=== PATIENT | female | born 1990 | race Caucasian/White ===

== ENCOUNTER 2018-09-27 20:01 | Emergency (ER) | payer BC ==
--- NOTE | 2018-09-27 20:04 | EDM.PDOC ---
ED HPI GENERAL MEDICAL PROBLEM - General Stated Complaint: PT HAS FEVER AND COUGH Time Seen by Provider: 09/27/18 20:02 Source of Information: Reports: Patient History Limitations: Reports: No Limitations - History of Present Illness INITIAL COMMENTS - FREE TEXT/NARRATIVE: HISTORY AND PHYSICAL: Cough History of present illness: Patient is a 28-year-old female who presents to the emergency room with complaints of cough and subjective fevers 1 week. She states that she has been using ibuprofen routinely for pain and fever management but still has a nonproductive cough. Hasn't not been able to sleep due to the cough disrupting her. She denies any chest pain, shortness of breath, abdominal pain, nausea, vomiting , diarrhea or constipation. She has been able to eat and drink appropriately. Denies any chance of . Patient is a pack per day smoker times one year. Review of systems: As per history of present illness and below otherwise all systems reviewed and negative. Past medical history: As per history of present illness and as reviewed below otherwise noncontributory. Surgical history: As per history of present illness and as reviewed below otherwise noncontributory. Social history: See social history for further information Family history: As per history of present illness and as reviewed below otherwise noncontributory. Physical exam: General: Well-developed and well-nourished 28 she'll female. Alert and oriented. Nontoxic appearing and in no acute distress. HEENT: Atraumatic, normocephalic, pupils equal and reactive bilaterally, negative for conjunctival pallor or scleral icterus, mucous membranes moist, throat clear, neck supple, nontender, trachea midline. No drooling or trismus noted. No meningeal signs Lungs: Clear to auscultation, breath sounds equal bilaterally, chest nontender. Heart: S1S2, regular rate and rhythm without overt murmur Abdomen: Soft, nondistended, nontender. Negative for masses or hepatosplenomegaly. Negative for costovertebral tenderness. Pelvis: Stable nontender. Genitourinary: Deferred. Rectal: Deferred. Skin: Intact, warm, dry. No lesions or rashes noted. Extremities: Atraumatic, negative for cords or calf pain. Neurovascular unremarkable. Neuro: Awake, alert, oriented. Cranial nerves II through XII unremarkable. Cerebellum unremarkable. Motor and sensory unremarkable throughout. Exam nonfocal. Notes: No acute findings on chest x-ray. Due to the longevity of symptoms and patient being a smoker we'll treat with a Z-Kelvin. Supportive care measures were reviewed and discussed. She voices understanding and is agreeable to plan of care. Denies any further questions or concerns at this time. Diagnostics: Chest x-ray Therapeutics: None Prescription: Medrol Dosepak Z-Kelvin Phenergan w/ Codeine ([facility]) Impression: Bronchitis Plan: 1. Please stop smoking 2. Take your medications as directed. Use the Phenergan with Codeine for night time use only; may cause drowsiness. 3. Follow-up with your primary caregiver on Friday. Return to the ED as needed and as discussed. Definitive disposition and diagnosis as appropriate pending reevaluation and review of above. chest Pain Score (Numeric/FACES): 7 - Related Data Allergies Allergy/AdvReac Type Severity Reaction Status Date / Time No Known Allergies Allergy Verified 09/27/18 20:11 Home Meds: Home Meds FLUoxetine [PROzac] 40 mg PO DAILY 09/27/18 [History] ED ROS GENERAL - Review of Systems Review Of Systems: ROS reveals no pertinent complaints other than HPI. ED EXAM, GENERAL - Physical Exam Exam: See Below (See dictation) Course - Vital Signs Last Recorded V/S: Last Vital Signs Temp 96.8 F 09/27/18 20:08 Pulse 73 09/27/18 20:08 Resp 17 09/27/18 20:08 BP 122/86 09/27/18 20:08 Pulse Ox 98 09/27/18 20:08 - Orders/Labs/Meds Orders: Active Orders 24 hr Category Date Time Status Chest 2V [CR] Stat Exams 09/27/18 20:03 Ordered Azithromycin [Zithromax] Med 09/27/18 20:23 Stat 500 mg PO NOW STA Departure - Departure Time of Disposition: 20:24 Disposition: Home, Self-Care 01 Clinical Impression: Bronchitis - Discharge Information Instructions: Acute Bronchitis, Adult, [id number] Additional Instructions: The following information is given to patients seen in the emergency department who are being discharged to home. This information is to outline your options for follow-up care. We provide all patients seen in our emergency department with a follow-up referral. The need for follow-up, as well as the timing and circumstances, are variable depending upon the specifics of your emergency department visit. If you don't have a primary care physician on staff, we will provide you with a referral. We always advise you to contact your personal physician following an emergency department visit to inform them of the circumstance of the visit and for follow-up with them and/or the need for any referrals to a consulting specialist. The emergency department will also refer you to a specialist when appropriate. This referral assures that you have the opportunity for follow-up care with a specialist. All of these measure are taken in an effort to provide you with optimal care, which includes your follow-up. Under all circumstances we always encourage you to contact your private physician who remains a resource for coordinating your care. When calling for follow-up care, please make the office aware that this follow-up is from your recent emergency room visit. If for any reason you are refused follow-up, please contact the [facility] Emergency Department at and asked to speak to the emergency department charge nurse. [facility] [address] [place] [id number] [place] [address] 1. Please stop smoking 2. Take your medications as directed. Use the Phenergan with Codeine for night time use only; may cause drowsiness. 3. Follow-up with your primary caregiver on Friday. Return to the ED as needed and as discussed. - My Orders Last 24 Hours: My Active Orders 09/27/18 20:03 Chest 2V [CR] Stat 09/27/18 20:23 Azithromycin [Zithromax] 500 mg PO NOW STA - Assessment/Plan Last 24 Hours: My Active Orders 09/27/18 20:03 Chest 2V [CR] Stat 09/27/18 20:23 Azithromycin [Zithromax] 500 mg PO NOW STA
[2018-09-27] MEDS ORDERED: Azithromycin 250 MG Tab PO STA (20:23)
--- NOTE | 2018-09-28 20:34 | CR ---
EXAM DATE: 09/27/18 PATIENT'S AGE: 28 Patient: PIA CARCAMO Facility: [place], [place] Site . Site : 1990 Study: XRay Chest [id number] 8:23:15 PM Ordering Physician: Doctor Munoz Final Report: HISTORY: Chest pain and shortness of breath. TECHNIQUE: Two views of the chest. COMPARISON: No prior. FINDINGS: Cardiac size and pulmonary vasculature are within normal limits. There is no acute lung infiltrate or pulmonary edema. No pneumothorax or pleural effusion. No acute bony abnormality. IMPRESSION: No acute disease. Dictated by Marcelo Mccoy MD @ 09/27/2018 8:48:08 PM Dictated by: Marcelo Mccoy MD @ 09/27/2018 20:48:12 (Electronic Signature) Report Signed by Proxy. [facility]
== END 2018-09-27 20:45 | disposition home or self-care (01) ==
LOC: MW.ED 20:01
DX: J40 Bronchitis, not specified as acute or chronic (principal); F17.210 Nicotine dependence, cigarettes, uncomplicated; Z79.899 Other long term (current) drug therapy
CPT/HCPCS: 71046; 99283; A9270

== ENCOUNTER 2018-10-21 20:00 | Emergency (ER) | payer BC ==
[2018-10-21] MEDS ORDERED: Lidocaine 1% with EPINEPHrine 1:100,000 20 ML MDV INJECT ONE (20:24)
[2018-10-21] MEDS ORDERED: Sulfamethoxazole/Trimethoprim 800-160 MG Tab PO ONE (20:24)
[2018-10-21] MEDS ORDERED: Lidocaine 1% with EPINEPHrine 1:100,000 20 ML MDV ONE (20:27)
--- NOTE | 2018-10-21 20:27 | EDM.PDOC ---
ED HPI GENERAL MEDICAL PROBLEM - General Chief Complaint: Skin Complaint Stated Complaint: SORE ON RIGH LEG Time Seen by Provider: 10/21/18 20:17 - History of Present Illness INITIAL COMMENTS - FREE TEXT/NARRATIVE: HISTORY AND PHYSICAL: History of present illness: The patient is a healthy 28-year-old female who has no history of diabetes or other pre-existing medical problems and presents with a bump/reddened area at her right inner thigh. She says she noticed about 2 months ago and spoke with her provider at [facility] without it might be an ingrown hair but it was not red or swollen. Over the last 2 months due to rubbing of her inner thighs she says it has gotten more prominent and she is concerned that it is an abscess. She has pain to the area. She has no redness streaking up her leg and she has no pain in the thigh except at the localized site. She has no systemic complaints has an IUD in place and is not . Review of systems: As per history of present illness and below otherwise all systems reviewed and negative. Past medical history: As per history of present illness and as reviewed below otherwise noncontributory. Surgical history: As per history of present illness and as reviewed below otherwise noncontributory. Social history: No reported history of drug or alcohol abuse. Family history: As per history of present illness and as reviewed below otherwise noncontributory. Physical exam: General: Well-developed well-nourished overweight female who is nontoxic and vital signs noted by me HEENT: Atraumatic, normocephalic, negative for conjunctival pallor or scleral icterus, mucous membranes moist, throat clear, neck supple, nontender, trachea midline. Lungs: Clear to auscultation, breath sounds equal bilaterally, chest nontender. Heart: S1S2, regular rate and rhythm no overt murmurs Abdomen: Soft, nondistended, nontender. NABS Pelvis: Stable nontender. Genitourinary: Deferred. Rectal: Deferred. Extremities: Atraumatic, negative for cords or calf pain. Neurovascular unremarkable. Neuro: Awake, alert, oriented. Cranial nerves II through XII unremarkable. Cerebellum unremarkable. Motor and sensory unremarkable throughout. Exam nonfocal. Skin: At the right inner thigh there is a raised fluctuant area that is 1.5 I 2 cm with only minimal surrounding erythema and no streaking. There is tenderness at the site and it is ballotable but it is not tense. There is no inguinal adenopathy and the thigh itself is nontender and nonswollen. Diagnostics: [] Therapeutics: Bactrim DS, lidocaine with epinephrine for I&D Procedure note: After the procedure was explained to the patient the skin was cleansed and lidocaine with epinephrine was infused in a local fashion. An #11 blade was utilized to make an incision and a small amount of fluid was expressed. The cavity was explored and an iodoform pack was placed. The patient tolerated the procedure well and there were no complications. A dressing was placed. The procedure was performed by Jose Alvarado [employer] Impression: Right inner thigh abscess Definitive disposition and diagnosis as appropriate pending reevaluation and review of above. Right Upper Leg Pain Score (Numeric/FACES): 3 - Related Data Allergies Allergy/AdvReac Type Severity Reaction Status Date / Time No Known Allergies Allergy Verified 09/27/18 20:11 Home Meds: Home Meds FLUoxetine [PROzac] 40 mg PO DAILY 09/27/18 [History] LORazepam 1 mg PO ASDIRECTED 10/21/18 [History] Past Medical History Respiratory History: Reports: Other (See Below) Other Respiratory History: pneumonia nov 2017 Musculoskeletal History: Reports: Fracture, Other (See Below) Other Musculoskeletal History: C2 fx Neurological History: Reports: Other (See Below) Other Neuro History: broken C2 due to falling off horse Psychiatric History: Reports: Anxiety, Depression - Infectious Disease History Infectious Disease History: Reports: Chicken Pox - Past Surgical History Respiratory Surgical History: Reports: None Social & Family History - Family History Family Medical History: Noncontributory - Tobacco Use Smoking Status *Q: Current Every Day Smoker Years of Tobacco use: 8 Packs/Tins Daily: 0.3 - Caffeine Use Caffeine Use: Reports: None - Recreational Drug Use Recreational Drug Use: No ED ROS GENERAL - Review of Systems Review Of Systems: ROS reveals no pertinent complaints other than HPI. ED EXAM, SKIN/RASH Exam: See Below (see Dictation) Course - Vital Signs Last Recorded V/S: Last Vital Signs Temp 36.4 C 10/21/18 20:13 Pulse 64 10/21/18 20:13 Resp 18 10/21/18 20:13 BP 125/91 H 02/06/19 20:13 Pulse Ox 97 10/21/18 20:13 - Orders/Labs/Meds Meds: Medications Discontinued Medications Generic Name Dose Route Start Last Admin Trade Name Clary PRN Reason Stop Dose Admin Lidocaine/Epinephrine 20 ml 10/21/18 20:24 10/21/18 20:31 Xylocaine 1% With Epinephrine 1:100,000 INJECT 10/21/18 20:25 20 ml ONETIME ONE Administration Lidocaine/Epinephrine Confirm 10/21/18 20:27 10/21/18 20:31 Xylocaine 1% With Epinephrine 1:100,000 Administered 10/21/18 20:28 Not Given Dose 20 ml .ROUTE .STK-MED ONE Trimethoprim/Sulfamethoxazole 1 tab 10/21/18 20:24 10/21/18 20:31 Septra Ds PO 10/21/18 20:25 1 tab ONETIME ONE Administration Departure - Departure Time of Disposition: 20:38 Disposition: Home, Self-Care 01 Condition: Good Clinical Impression: Abscess - Discharge Information Referrals: Rosio Garcia NP [Primary Care Provider] - Forms: ED Department Discharge Additional Instructions: The following information is given to patients seen in the emergency department who are being discharged to home. This information is to outline your options for follow-up care. We provide all patients seen in our emergency department with a follow-up referral. The need for follow-up, as well as the timing and circumstances, are variable depending upon the specifics of your emergency department visit. If you don't have a primary care physician on staff, we will provide you with a referral. We always advise you to contact your personal physician following an emergency department visit to inform them of the circumstance of the visit and for follow-up with them and/or the need for any referrals to a consulting specialist. The emergency department will also refer you to a specialist when appropriate. This referral assures that you have the opportunity for followup care with a specialist. All of these measure are taken in an effort to provide you with optimal care, which includes your followup. Under all circumstances we always encourage you to contact your private physician who remains a resource for coordinating your care. When calling for followup care, please make the office aware that this follow-up is from your recent emergency room visit. If for any reason you are refused follow-up, please contact the [facility] emergency department at and ask to speak to the emergency department charge nurse. [address] [place] [address] Please have pack removed here in the ED and 24-36 hours or with your provider at [facility]. Take medications as prescribed. Expect drainage from the area. Return to ER sooner as needed and as discussed. Use [id number] medications for pain or the tramadol you have been prescribed for stronger pain and sleep time.
== END 2018-10-21 21:00 | disposition home or self-care (01) ==
LOC: MW.ED 20:00
DX: L02.415 Cutaneous abscess of right lower limb (principal); F17.210 Nicotine dependence, cigarettes, uncomplicated
CPT/HCPCS: 10060; 99282; A9270

== ENCOUNTER 2020-08-14 10:31 | Emergency (ER) | payer BC ==
[2020-08-14] MEDS ORDERED: Sodium Chloride 0.9% 1,000 ML IV ONE (10:47)
--- NOTE | 2020-08-14 11:02 | PCM.SN.2 ---
- Free Text/Narrative Note: 12-Lead ECG Interpretation Acquired: 10:57 AM Rhythm: Sinus tachycardia Rate: 111 bpm [place]: Normal Intervals: Normal Ectopy: None RV Strain: No obvious RV strain pattern. ST Segments/T-Waves: No notable changes Acute Ischemic Changes: None apparent Interpretation: No STEMI
--- NOTE | 2020-08-14 11:32 | EDM.PDOC ---
ED HPI GENERAL MEDICAL PROBLEM - General Chief Complaint: Cardiovascular Problem Stated Complaint: SHORTNESS OF BREATH Time Seen by Provider: 08/14/20 10:35 Source of Information: Reports: Patient History Limitations: Reports: No Limitations - History of Present Illness INITIAL COMMENTS - FREE TEXT/NARRATIVE: HISTORY AND PHYSICAL: History of present illness: Patient is a 29-year-old female who presents to the emergency room today with concern of a fast heart rate that started this morning. Patient states she called her [employer] provider, Nini Carney, and was instructed to come to the emergency room for further evaluation. Patient states she is approximately 24 weeks in gestation with her first . Patient states she has not had any complications and thus far has had a routine . Patient denies any vaginal bleeding, or abdominal cramping. Patient states that when she is laying down, she feels better but feels worse when she sits up and walks around and feels her heart beating faster. Patient states she has a pulse oximeter at home that was telling her her heart rate was 150s and oxygen 80s at home so called Nini and instructed to come to the ED. Patient states she was diagnosed with COVID-19 over 1 month ago and has been symptom free for a few weeks/cleared from quarantine. Patient denies fever, chills, chest pain, shortness of breath, or cough. Denies headache, neck stiff ness, change in vision, syncope, or near syncope. Denies nausea, vomiting, abdominal pain, diarrhea, constipation, or dysuria. Has not noted any blood in urine or stool. Patient has been eating and drinking appropriately. Review of systems: As per history of present illness and below otherwise all systems reviewed and negative. Past medical history: As per history of present illness and as reviewed below otherwise noncontributory. Surgical history: As per history of present illness and as reviewed below otherwise noncontributory. Social history: See social history for further information Family history: As per history of present illness and as reviewed below otherwise noncontributory. Physical exam: General: Patient is alert, oriented, and in no acute distress. Patient laying comfortably on exam table. HR 100s-110 on my exam. Vitals stable and reviewed by me. HEENT: Atraumatic, normocephalic, pupils equal and reactive bilaterally, negative for conjunctival pallor or scleral icterus, mucous membranes moist, TMs normal bilaterally, throat clear, neck supple, nontender, trachea midline. No drooling or trismus noted. No meningeal signs. No hot potato voice noted. Lungs: Clear to auscultation, breath sounds equal bilaterally, chest nontender. Heart: S1S2, regular rate and rhythm without overt murmur Abdomen: Soft, nondistended, nontender. Negative for masses or hepatosplenomegaly. Negative for costovertebral tenderness. Pelvis: Stable nontender. Genitourinary: Deferred. Rectal: Deferred. Skin: Intact, warm, dry. No lesions or rashes noted. Extremities: Atraumatic, negative for cords or calf pain. Neurovascular unremarkable. Neuro: Awake, alert, oriented. Cranial nerves II through XII unremarkable. Cerebellum unremarkable. Motor and sensory unremarkable throughout. Exam nonfocal. Notes: heart tones at bedside 145. All risks vs benefits of Ang CT scan discussed with patient and accepting/agreeable to Ang CT scan. Evaluation, patient's heart rate is consistently 80s to 90s after 1 L of normal saline was given. Patient states she does have improvement of symptoms after liter of normal saline. Ambulatory saturation was obtained, and patient's lowest oxygenation saturation with ambulation was 95% and patient breathing comfortably. Incidental findings of Ang CT scan discussed with patient and the importance to have this followed up with PCP. Also discussed following up with her primary care provider and her women's health provider. Signs and symptoms that would prompt return to the ED thoroughly discussed with patient. Strict return precautions thoroughly discussed. Repeat EKG shows no acute changes. See Dr. Foote documentation for further EKG interpretation. Voices understanding and is agreeable to plan of care. Denies any further questions or concerns at this time. Diagnostics: EKG, CBC, CMP, UA, Trop, Ddimer, Ang CT Therapeutics: NS Prescription: None Impression: Sinus tachycardia, resolved Palpitations Plan: 1. Encourage small frequent sips of fluid to prevent dehydration. 2. Follow up with a primary care provider and women health provider as discussed. Return to the ED as needed and as discussed. Definitive disposition and diagnosis as appropriate pending reevaluation and review of above. - Related Data Allergies Allergy/AdvReac Type Severity Reaction Status Date / Time No Known Allergies Allergy Verified 08/14/20 10:42 Home Meds: Home Meds FLUoxetine [PROzac] 40 mg PO DAILY 09/27/18 [History] Past Medical History HEENT History: Reports: None Cardiovascular History: Reports: None Respiratory History: Reports: Other (See Below) Other Respiratory History: pneumonia nov 2017 Gastrointestinal History: Reports: None Genitourinary History: Reports: None RESCUE INSTRUCTOR History: Reports: None Musculoskeletal History: Reports: Fracture, Other (See Below) Other Musculoskeletal History: C2 fx Neurological History: Reports: Other (See Below) Other Neuro History: broken C2 due to falling off horse Psychiatric History: Reports: Anxiety, Depression Endocrine/Metabolic History: Reports: None Dermatologic History: Reports: None - Infectious Disease History Infectious Disease History: Reports: Chicken Pox - Past Surgical History Respiratory Surgical History: Reports: None Female Surgical History: Reports: None Neurological Surgical History: Reports: Other (See Below) Other Neurological Surgeries/Procedures: using hallo Social & Family History - Family History Family Medical History: No Pertinent Family History - Tobacco Use Tobacco Use Status *Q: Never Tobacco User - Caffeine Use Caffeine Use: Reports: Coffee - Recreational Drug Use Recreational Drug Use: No ED ROS GENERAL - Review of Systems Review Of Systems: Comprehensive ROS is negative, except as noted in HPI. ED EXAM, GENERAL - Physical Exam Exam: See Below (see dictation) Course - Vital Signs Last Recorded V/S: Last Vital Signs Temp 98.1 F 08/14/20 15:24 Pulse 92 08/14/20 15:24 Resp 18 08/14/20 15:24 BP 116/71 08/14/20 15:24 Pulse Ox 95 08/14/20 15:24 - Orders/Labs/Meds Labs: Laboratory Tests 08/14/20 08/14/20 08/14/20 Range/Units 10:57 10:57 10:57 WBC 15.36 H (4.0-11.0) K/uL RBC 3.91 L (4.30-5.90) M/uL Hgb 11.3 L (12.0-16.0) g/dL Hct 34.3 L (36.0-46.0) % MCV 87.7 (80.0-98.0) fL MCH 28.9 (27.0-32.0) pg MCHC 32.9 (31.0-37.0) g/dL RDW Std Deviation 44.0 (28.0-62.0) fl RDW Coeff of Rick 14 (11.0-15.0) % Plt Count 322 (150-400) K/uL MPV 10.80 (7.40-12.00) fL Add Manual Diff YES Neutrophils % (Manual) 67 (48.0-80.0) % Band Neutrophils % 10 % Lymphocytes % (Manual) 17 (16.0-40.0) % Monocytes % (Manual) 4 (0.0-15.0) % Metamyelocytes % 2 % Nucleated RBC % 0.0 /100WBC Absolute Seg Neuts 10.3 H (1.4-5.7) Band Neutrophils # 1.5 Lymphocytes # (Manual) 2.6 H (0.6-2.4) Monocytes # (Manual) 0.6 (0.0-0.8) Absolute Metamyelocyte 0.3 Nucleated RBCs # 0 K/uL Plt Morphology Comment D-Dimer, Quantitative 0.87 H (0.0-0.50) mg/L FEU Lactate (0.20-2.00) mmol/L Sodium 136 (136-145) mmol/L Potassium 3.7 (3.5-5.1) mmol/L Chloride 104 (98-107) mmol/L Carbon Dioxide 22.5 (21.0-32.0) mmol/L BUN 8 (7.0-18.0) mg/dL Creatinine 0.6 (0.6-1.0) mg/dL Est Cr Clr Drug Dosing 121.62 mL/min Estimated GFR (MDRD) > 60.0 ml/min Glucose 144 H (74-106) mg/dL Calcium 8.8 (8.5-10.1) mg/dL Total Bilirubin 0.2 (0.2-1.0) mg/dL AST 13 L (15-37) IU/L ALT 17 (14-63) IU/L Alkaline Phosphatase 93 (46-116) U/L Troponin I < 0.050 (0.000-0.056) ng/mL Total Protein 6.4 (6.4-8.2) g/dL Albumin 2.5 L (3.4-5.0) g/dL Globulin 3.9 (2.6-4.0) g/dL Albumin/Globulin Ratio 0.6 L (0.9-1.6) TSH 3rd Generation (0.36-3.74) uIU/mL Urine Color Urine Appearance Urine pH (5.0-8.0) Ur Specific [place] (1.001-1.035) Urine Protein (NEGATIVE) mg/dL Urine Glucose (UA) (NEGATIVE) mg/dL Urine Ketones (NEGATIVE) mg/dL Urine Occult Blood (NEGATIVE) Urine Nitrite (NEGATIVE) Urine Bilirubin (NEGATIVE) Urine Urobilinogen (<2.0) EU/dL Ur Leukocyte Esterase (NEGATIVE) 08/14/20 08/14/20 08/14/20 Range/Units 10:57 11:56 12:15 WBC (4.0-11.0) K/uL RBC (4.30-5.90) M/uL Hgb (12.0-16.0) g/dL Hct (36.0-46.0) % MCV (80.0-98.0) fL MCH (27.0-32.0) pg MCHC (31.0-37.0) g/dL RDW Std Deviation (28.0-62.0) fl RDW Coeff of Rick (11.0-15.0) % Plt Count (150-400) K/uL MPV (7.40-12.00) fL Add Manual Diff Neutrophils % (Manual) (48.0-80.0) % Band Neutrophils % % Lymphocytes % (Manual) (16.0-40.0) % Monocytes % (Manual) (0.0-15.0) % Metamyelocytes % % Nucleated RBC % /100WBC Absolute Seg Neuts (1.4-5.7) Band Neutrophils # Lymphocytes # (Manual) (0.6-2.4) Monocytes # (Manual) (0.0-0.8) Absolute Metamyelocyte Nucleated RBCs # K/uL Plt Morphology Comment D-Dimer, Quantitative (0.0-0.50) mg/L FEU Lactate 1.5 (0.20-2.00) mmol/L Sodium (136-145) mmol/L Potassium (3.5-5.1) mmol/L Chloride (98-107) mmol/L Carbon Dioxide (21.0-32.0) mmol/L BUN (7.0-18.0) mg/dL Creatinine (0.6-1.0) mg/dL Est Cr Clr Drug Dosing mL/min Estimated GFR (MDRD) ml/min Glucose (74-106) mg/dL Calcium (8.5-10.1) mg/dL Total Bilirubin (0.2-1.0) mg/dL AST (15-37) IU/L ALT (14-63) IU/L Alkaline Phosphatase (46-116) U/L Troponin I (0.000-0.056) ng/mL Total Protein (6.4-8.2) g/dL Albumin (3.4-5.0) g/dL Globulin (2.6-4.0) g/dL Albumin/Globulin Ratio (0.9-1.6) TSH 3rd Generation 1.25 (0.36-3.74) uIU/mL Urine Color YELLOW Urine Appearance CLEAR Urine pH 7.0 (5.0-8.0) Ur Specific [place] 1.020 (1.001-1.035) Urine Protein NEGATIVE (NEGATIVE) mg/dL Urine Glucose (UA) NEGATIVE (NEGATIVE) mg/dL Urine Ketones NEGATIVE (NEGATIVE) mg/dL Urine Occult Blood NEGATIVE (NEGATIVE) Urine Nitrite NEGATIVE (NEGATIVE) Urine Bilirubin NEGATIVE (NEGATIVE) Urine Urobilinogen 0.2 (<2.0) EU/dL Ur Leukocyte Esterase NEGATIVE (NEGATIVE) Meds: Medications Discontinued Medications Generic Name Dose Route Start Last Admin Trade Name Freq PRN Reason Stop Dose Admin Sodium Chloride 1,000 mls @ 999 mls/hr 08/14/20 10:47 08/14/20 10:53 Normal Saline IV 08/14/20 11:47 999 mls/hr BOLUS ONE Administration Iopamidol 75 ml 08/14/20 13:40 08/14/20 13:41 Isovue Multipack-370 (76%) IVPUSH 08/14/20 13:41 75 ml ONETIME STA Administration Departure - Departure Time of Disposition: 15:01 Disposition: Home, Self-Care 01 Clinical Impression: Palpitations, Sinus tachycardia - Discharge Information Instructions: Palpitations, [id number] Referrals: Nini Aden CNM, [employer]ANNER [Primary Care Provider] - Forms: ED Department Discharge Additional Instructions: The following information is given to patients seen in the emergency department who are being discharged to home. This information is to outline your options for follow-up care. We provide all patients seen in our emergency department with a follow-up referral. The need for follow-up, as well as the timing and circumstances, are variable depending upon the specifics of your emergency department visit. If you don't have a primary care physician on staff, we will provide you with a referral. We always advise you to contact your personal physician following an emergency department visit to inform them of the circumstance of the visit and for follow-up with them and/or the need for any referrals to a consulting specialist. The emergency department will also refer you to a specialist when appropriate. This referral assures that you have the opportunity for follow-up care with a specialist. All of these measure are taken in an effort to provide you with optimal care, which includes your follow-up. Under all circumstances we always encourage you to contact your private physician who remains a resource for coordinating your care. When calling for follow-up care, please make the office aware that this follow-up is from your recent emergency room visit. If for any reason you are refused follow-up, please contact the [facility] at and asked to speak to the emergency department charge nurse. [facility] [address] [place] [address] [id number] 1. Encourage small frequent sips of fluid to prevent dehydration. 2. Follow up with a primary care provider and women health provider as discussed. Return to the ED as needed and as discussed. Sepsis Event Note (ED) - Evaluation Sepsis Screening Result: No Definite Risk - Focused Exam Vital Signs: Vital Signs Temp Pulse Resp BP Pulse Ox 08/14/20 15:24 98.1 F 92 18 116/71 95 08/14/20 14:08 83 18 128/76 96 08/14/20 13:08 85 14 115/77 96 08/14/20 12:19 82 18 131/78 96 08/14/20 11:08 99 16 123/83 95 08/14/20 10:42 97.8 F 150 H 16 138/88 96
[2020-08-14 11:46] LABS: BLOOD UREA NITROGEN,BUN 8 mg/dL (7.0-18.0); CARBON DIOXIDE,CO2 22.5 mmol/L (21.0-32.0); CHLORIDE,CL 104 mmol/L (98-107); GLUCOSE RANDOM 144 mg/dL (74-106); POTASSIUM,K 3.7 mmol/L (3.5-5.1); SODIUM,NA 136 mmol/L (136-145)
[2020-08-14] MEDS ORDERED: Iopamidol 755 MG/ML 500 ML Multipack Bottle IVPUSH STA (13:40)
--- NOTE | 2020-08-14 14:17 | CT ---
INDICATION: Dyspnea. Tachycardia. Elevated D-dimer. . COMPARISON: None TECHNIQUE: : CT examination of the chest was performed with the uneventful intravenous administration of 75 cc of Isovue 370 while thin axial sections were obtained from above the apices of the lungs to the lung bases. Please note that all CT scans at this facility use dose modulation, iterative reconstruction, and/or weight-based dosing when appropriate to reduce radiation dose to as low as reasonably achievable. FINDINGS: : HEART and MEDIASTINUM: Heart size normal. Prominent superior mediastinal soft tissue. 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 A repeat CT should be considered in 3 months. There are other possibilities for this appearance including mass or adenopathy. PULMONARY ARTERIAL CIRCULATION: There is no visible intraluminal filling defect to suggest pulmonary embolus. LUNGS: The lungs show no focal consolidation or mass. The airways appear normal. PLEURAL SPACES: There is no pleural effusion, pneumothorax or pleural based mass. VISUALIZED UPPER ABDOMEN: The limited visualized upper abdominal structures appear normal. OSSEOUS STRUCTURES: Age-appropriate appearance. No acute fracture or destructive process. TUBES and LINES: None. IMPRESSION: 1. There is no evidence of pulmonary embolus. 2. The lungs and pleural space appear normal. 3. 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 I recommend that this be followed up. A follow-up CT should be considered in 3 months. Please review the comment. Please note that all CT scans at this facility use dose modulation, iterative reconstruction, and/or weight-based dosing when appropriate to reduce radiation dose to as low as reasonably achievable. Dictated by Jack Quintana MD @ Aug 14 2020 2:05PM Signed by Dr. Jack Quintana @ Aug 14 2020 2:15PM
--- NOTE | 2020-08-14 16:06 | PCM.SN.2 ---
- Free Text/Narrative Note: 12-Lead ECG Interpretation Acquired: 2:45 PM Rhythm: Sinus rhythm Rate: 78 bpm [place]: Normal Intervals: Normal Ectopy: None RV Strain: No obvious RV strain pattern. ST Segments/T-Waves: No notable changes Acute Ischemic Changes: None apparent Interpretation: No STEMI
== END 2020-08-14 15:27 | disposition home or self-care (01) ==
LOC: MW.ED 10:31
DX: R00.2 Palpitations (principal); R00.0 Tachycardia, unspecified; O99.342 Other mental disorders complicating pregnancy, second trimester; F41.9 Anxiety disorder, unspecified; F32.9 Major depressive disorder, single episode, unspecified; Z79.899 Other long term (current) drug therapy; O99.891 Other specified diseases and conditions complicating pregnancy; Z3A.24 24 weeks gestation of pregnancy
CPT/HCPCS: 36415; 71275; 80053; 81003; 83605; 84443; 84484; 85025; 85379; 93005; 99285; J7030; Q9967; 93010; 99284

== ENCOUNTER 2020-08-31 21:52 | Emergency (ER) | payer BC ==
[2020-08-31 22:54] LABS: BLOOD UREA NITROGEN,BUN 8 mg/dL (7.0-18.0); CARBON DIOXIDE,CO2 24.9 mmol/L (21.0-32.0); CHLORIDE,CL 104 mmol/L (98-107); GLUCOSE RANDOM 120 mg/dL (74-106); POTASSIUM,K 3.8 mmol/L (3.5-5.1); SODIUM,NA 139 mmol/L (136-145)
--- NOTE | 2020-08-31 23:05 | US ---
INDICATION: Left ankle and leg swelling COMPARISON: None TECHNIQUE: A compression venous ultrasound exam was performed of the left lower extremity using gibbs-scale imaging, color Doppler and spectral Doppler analysis. FINDINGS: The common femoral vein and proximal greater saphenous vein are compressible and demonstrate normal phasic flow with augmentation. The superficial femoral vein, popliteal vein, posterior tibial vein, and peroneal vein are also compressible and demonstrate normal phasic flow with augmentation. IMPRESSION: No evidence of left lower extremity deep venous thrombosis. Dictated by Heaven Burgess MD @ Aug 31 2020 11:02PM Signed by Dr. Heaven Burgess @ Aug 31 2020 11:04PM
--- NOTE | 2020-08-31 23:33 | EDM.PDOC ---
ED [facility] GENERAL MEDICAL PROBLEM - General Chief Complaint: Lower Extremity Injury/Pain Stated Complaint: LEFT LEG SWOLLEN Time Seen by Provider: 08/31/20 21:53 Source of Information: Reports: Patient, Old Records History Limitations: Reports: No Limitations - History of Present Illness INITIAL COMMENTS - FREE TEXT/NARRATIVE: This is a very pleasant 29-year-old female, 27 weeks , G1 presenting with left lower extremity swelling. 1 day history of swelling to left ankle and the lower half of the left leg. No history of any preceding trauma. Denies any fever, chills, redness, or tenderness. No recent surgery, immobilization, long travel, no history of venous thromboembolism, no personal history of malignancy, denies any chest pain or shortness of breath, no history of liver or renal disease. No abdominal or back pain or any vaginal bleeding. ROS: A 10-point review of systems was negative, except as noted in the HPI (or in the ROS section of this note). Past medical history: Reviewed, no additional pertinent history. Surgical history: Reviewed in system, no additional pertinent history. Social history: Reviewed in system, no additional pertinent history. Family history: Reviewed in system, no additional pertinent history. PHYSICAL EXAM Vital signs reviewed. Nursing notes reviewed. Constitutional: Awake, alert, non-distressed. Head: Normocephalic, atraumatic. Eyes: EOMI, conjunctiva normal, no discharge, no scleral icterus. Ears, Nose, Throat: External ears and nose normal, moist oral mucosa. Cardiovascular: 2+ left DP pulse, capillary refill less than 2 seconds. 2+ edema of the left ankle and the lower half of the left leg. Pulmonary: normal work of breathing, no accessory muscle use. Abdomen/GI: Soft, nontender, nondistended, no guarding or rigidity, no masses. Musculoskeletal: No deformities. Integumentary: Appropriate color for ethnicity, warm, dry, no pallor or jaundice, no rash. The left leg exhibits no erythema, induration, or tenderness to suggest cellulitis. Neurologic: Alert, answering questions appropriately, normal speech, no facial droop, moving all extremities well. Psychiatric: Appropriate mood and affect, normal thought process. This patient was seen and evaluated during the 2019 SARS-CoV-2 novel coronavirus pandemic period. Community viral transmission is ongoing at time of this encounter and the emergency department is operating under pandemic response procedures. - Related Data Allergies Allergy/AdvReac Type Severity Reaction Status Date / Time No Known Allergies Allergy Verified 08/31/20 22:02 Home Meds: Home Meds DULoxetine [Cymbalta] 30 mg PO DAILY 08/31/20 [History] Past Medical History HEENT History: Reports: None Cardiovascular History: Reports: None Respiratory History: Reports: Other (See Below) Other Respiratory History: pneumonia nov 2017 Gastrointestinal History: Reports: None Genitourinary History: Reports: None [employer] History: Reports: None Musculoskeletal History: Reports: Fracture, Other (See Below) Other Musculoskeletal History: C2 fx Neurological History: Reports: Other (See Below) Other Neuro History: broken C2 due to falling off horse Psychiatric History: Reports: Anxiety, Depression Endocrine/Metabolic History: Reports: None Dermatologic History: Reports: None - Infectious Disease History Infectious Disease History: Reports: Chicken Pox - Past Surgical History Respiratory Surgical History: Reports: None Female Surgical History: Reports: None Neurological Surgical History: Reports: Other (See Below) Other Neurological Surgeries/Procedures: using hallo Social & Family History - Family History Family Medical History: No Pertinent Family History - Tobacco Use Tobacco Use Status *Q: Never Tobacco User - Caffeine Use Caffeine Use: Reports: Coffee - Recreational Drug Use Recreational Drug Use: No Review of Systems - Review of Systems Review Of Systems: See Below ED EXAM, GENERAL - Physical Exam Exam: See Below Course - Vital Signs Text/Narrative:: 29-year-old female presenting with asymmetric left leg swelling. Patient hemodynamically stable, afebrile, well-appearing, looks nontoxic. Differential diagnosis includes but is not limited to: DVT, cellulitis, renal disease, liver disease, occult trauma, and many others. Exam is not consistent with cellulitis. Swelling is asymmetric, which argues against liver or renal disease. No history of any trauma. We did obtain labs and a DVT ultrasound, which was negative. CBC shows mild normocytic anemia, leukocytosis, normal platelet count. Metabolic panel is reassuring. No chest pain or shortness of breath to suggest a pulmonary embolism that mobilized from the leg. Given negative work-up and well appearance, stable to discharge home with outpatient [employer] or primary care follow-up. I counseled the patient that she will need a repeat DVT ultrasound in about 7 days. She voiced understanding. We discussed elevating the leg and compression stockings to help reduce the asymmetric edema. Plan: Patient is stable to discharge home with outpatient primary care or [facility] clinic follow-up. Strict emergency department return precautions were provided, patient indicated understanding. All questions were answered prior to departure. Discharged in good condition. Last Recorded V/S: Last Vital Signs Temp 36.2 C 08/31/20 22:03 Pulse 109 H 08/31/20 22:03 Resp 16 08/31/20 22:03 BP 132/94 H 08/31/20 22:03 Pulse Ox 96 08/31/20 22:03 - Orders/Labs/Meds Labs: Laboratory Tests 08/31/20 08/31/20 Range/Units 22:33 22:33 WBC 15.06 H (4.0-11.0) K/uL RBC 3.76 L (4.30-5.90) M/uL Hgb 10.6 L (12.0-16.0) g/dL Hct 32.5 L (36.0-46.0) % MCV 86.4 (80.0-98.0) fL MCH 28.2 (27.0-32.0) pg MCHC 32.6 (31.0-37.0) g/dL RDW Std Deviation 43.2 (28.0-62.0) fl RDW Coeff of Rikc 14 (11.0-15.0) % Plt Count 308 (150-400) K/uL MPV 10.60 (7.40-12.00) fL Neut % (Auto) 75.7 (48.0-80.0) % Lymph % (Auto) 14.1 L (16.0-40.0) % Bandera % (Auto) 7.4 (0.0-15.0) % Eos % (Auto) 2.5 (0.0-7.0) % Baso % (Auto) 0.3 (0.0-1.5) % Neut # (Auto) 11.4 H (1.4-5.7) K/uL Lymph # (Auto) 2.1 (0.6-2.4) K/uL Bandera # (Auto) 1.1 H (0.0-0.8) K/uL Eos # (Auto) 0.4 (0.0-0.7) K/uL Baso # (Auto) 0.0 (0.0-0.1) K/uL Nucleated RBC % 0.0 /100WBC Nucleated RBCs # 0 K/uL Sodium 139 (136-145) mmol/L Potassium 3.8 (3.5-5.1) mmol/L Chloride 104 (98-107) mmol/L Carbon Dioxide 24.9 (21.0-32.0) mmol/L BUN 8 (7.0-18.0) mg/dL Creatinine 0.6 (0.6-1.0) mg/dL Est Cr Clr Drug Dosing 121.62 mL/min Estimated GFR (MDRD) > 60.0 ml/min Glucose 120 H (74-106) mg/dL Calcium 8.9 (8.5-10.1) mg/dL Departure - Departure Time of Disposition: 23:31 Disposition: Home, Self-Care 01 Condition: Good Clinical Impression: Leg edema, left, Second trimester - Discharge Information *PRESCRIPTION DRUG MONITORING PROGRAM REVIEWED*: Not Applicable *COPY OF PRESCRIPTION DRUG MONITORING REPORT IN PATIENT KATHARINA: Not Applicable Referrals: Lai Niño MD [Primary Care Provider] - 1 Week (For repeat ultrasound of the left leg to evaluate for blood clot/DVT.) Additional Instructions: You were seen in the emergency department for left leg swelling. Your ultrasound study did not show blood clot and your labs look reassuring. Typical recommendations are to have the DVT/blood clot ultrasound study repeated in 7 days to ensure that today's ultrasound was not falsely negative. Your family doctor or your [employer] clinic can order this. In the meantime you can elevate your leg while you are resting at home and you can also try compression stockings. Warning signs to come back to the ER include: Worsening swelling, fever, redness or streaking, chest pain, shortness of breath, or any other new or concerning symptoms. Please return the emergency department immediately if your symptoms worsen or if you feel worse. Thank you for choosing the [facility] emergency department in [place] for your medical needs today. It was a pleasure caring for you. The following information is given to patients seen in the emergency department who are being discharged. This information is to outline your options for follow-up care. We provide all patients seen in our emergency department with a follow-up referral. The need for follow-up, as well as the timing and circumstances, are variable depending upon the specifics of your emergency department visit. If you don't have a primary care physician on staff, we will provide you with a referral. We always advise you to contact your personal physician following an emergency department visit to inform them of the circumstance of the visit and for follow-up with them and/or the need for any referrals to a consulting specialist. The emergency department will also refer you to a specialist when appropriate. This referral assures that you have the opportunity for follow-up care with a specialist. All of these measure are taken in an effort to provide you with optimal care, which includes your follow-up. Under all circumstances we always encourage you to contact your private physician who remains a resource for coordinating your care. When calling for follow-up care, please make the office aware that this follow-up is from your recent emergency room visit. If for any reason you are refused follow-up, please contact the [facility] Emergency Department at and asked to speak to the emergency department charge nurse. If you do not have a primary care physician that is caring for you, you can contact these clinics below to set up an appointment to establish care: [facility] - Primary Care [address] [place] [id number] [facility] [address] [place] [id number] Sepsis Event Note (ED) - Evaluation Sepsis Screening Result: No Definite Risk - Focused Exam Vital Signs: Vital Signs Temp Pulse Resp BP Pulse Ox 08/31/20 22:03 36.2 C 109 H 16 132/94 H 96
--- NOTE | 2020-09-02 20:28 | PCM.SN.2 ---
- Free Text/Narrative Note: Performed routine telephone follow-up, patient has no concerns or questions and is doing well.
== END 2020-08-31 23:45 | disposition home or self-care (01) ==
LOC: MW.ED 21:52
DX: O99.891 Other specified diseases and conditions complicating pregnancy (principal); R60.0 Localized edema; O99.342 Other mental disorders complicating pregnancy, second trimester; F32.9 Major depressive disorder, single episode, unspecified; F41.9 Anxiety disorder, unspecified; Z3A.27 27 weeks gestation of pregnancy; Z79.899 Other long term (current) drug therapy
CPT/HCPCS: 36415; 80048; 85025; 93971-26-LT; 93971-LT; 99283; 99284-25

== ENCOUNTER 2020-12-07 20:52 | Inpatient (IN) | payer BC, OTHER, SELFPAY ==
--- NOTE | 2020-12-07 21:13 | PCM.LDHP ---
L&D History of Present Illness - General Date of Service: 12/07/20 Admit Problem/Dx: Admission Diagnosis/Problem Admission Diagnosis/Problem 12/07/20 21:08 presenting to L&D for induction of labor due to post dates (HERB: 11/30/20 by LMP and first trimester ultrasound). O+, Rubella immune, GBS positive (NKDA). SVE on admission: FT/50%/-3, medium, posterior; vertex presentation by Leian's and confirmed with bedside handheld ultrasound Source of Information: Patient History Limitations: Reports: No Limitations - Related Data Allergies/Adverse Reactions: Allergies Allergy/AdvReac Type Severity Reaction Status Date / Time No Known Allergies Allergy Verified 08/31/20 22:02 Home Medications: Home Meds DULoxetine [Cymbalta] 30 mg PO DAILY 08/31/20 [History] Past Medical History HEENT History: Reports: None Cardiovascular History: Reports: None Respiratory History: Reports: Other (See Below) Other Respiratory History: pneumonia nov 2017 Gastrointestinal History: Reports: None Genitourinary History: Reports: None OCC THERAPIST History: Reports: None Musculoskeletal History: Reports: Fracture, Other (See Below) Other Musculoskeletal History: C2 fx Neurological History: Reports: Other (See Below) Other Neuro History: broken C2 due to falling off horse Psychiatric History: Reports: Anxiety, Depression Endocrine/Metabolic History: Reports: None Dermatologic History: Reports: None - Infectious Disease History Infectious Disease History: Reports: Chicken Pox - Past Surgical History Respiratory Surgical History: Reports: None Female Surgical History: Reports: None Neurological Surgical History: Reports: Other (See Below) Other Neurological Surgeries/Procedures: using hallo Social & Family History - Family History Family Medical History: No Pertinent Family History - Caffeine Use Caffeine Use: Reports: Coffee H&P Review of Systems - Review of Systems: Review Of Systems: See Below General: Reports: No Symptoms HEENT: Reports: No Symptoms Pulmonary: Reports: No Symptoms Cardiovascular: Reports: No Symptoms Gastrointestinal: Reports: No Symptoms Genitourinary: Reports: No Symptoms Musculoskeletal: Reports: No Symptoms Skin: Reports: No Symptoms Psychiatric: Reports: No Symptoms Neurological: Reports: No Symptoms Hematologic/Lymphatic: Reports: No Symptoms Immunologic: Reports: No Symptoms L&D Exam - Exam Exam: See Below - OB Specific Movement: Active Heart Tones: Present Heart Rate (FHR) Variability: Moderate (6-25 bmp) Presentation: Vertex - Hatch Score Hatch Score Cervix Position: Posterior Hatch Score Consistency: Medium Hatch Score Effacement: 31-50% Hatch Score Dilation: Closed Hatch Score Infant's Station: -3 Hatch Score Total: 2 - Exam General: Alert, Oriented, Cooperative Lungs: Normal Respiratory Effort Cardiovascular: Regular Rate, Regular Rhythm GI/Abdominal Exam: Soft, Non-Tender Rectal Exam: Deferred Genitourinary: Deferred Back Exam: Normal Inspection, Full Range of Motion Extremities: Normal Inspection, Normal Range of Motion, Non-Tender, Normal Capillary Refill Skin: Warm, Dry, Intact Neurological: Strength Equal Bilateral, Normal Speech, Normal Tone, Sensation Intact Psychiatric: Alert, Normal Affect, Normal Mood - Problem List (1) Supervision of normal IUP (intrauterine ) in primigravida SNOMED Code(s): 79657559, 573341631, 684960992, 340393170 ICD Code: Z34.00 - ENCNTR FOR SUPRVSN OF NORMAL FIRST , UNSP TRIMESTER Status: Acute Current Visit: Yes Qualifiers: Trimester: third trimester Qualified Code(s): Z34.03 - Encounter for supervision of normal first , third trimester Problem List Initiated/Reviewed/Updated: Yes Assessment/Plan Comment:: Admit A: presenting to L&D for induction of labor due to post dates (HERB: 11/30/20 by LMP and first trimester ultrasound). O+, Rubella immune, GBS positive (NKDA). SVE on admission: FT/50%/-3, medium, posterior; vertex presentation by Elian's and confirmed with bedside handheld ultrasound P: Anticipate ; cytotec to pitocin PRN; epidural PRN; Dr. Petersen updated.
[2020-12-07] MEDS ORDERED: Sodium Chloride 0.9% 10 ML SDV IV PRN (21:40)
[2020-12-07] MEDS ORDERED: Tranexamic Acid 1,000 MG in Sodium Chloride 0.9% 100 ML IV PRN (21:40)
[2020-12-07] MEDS ORDERED: Sodium Chloride 0.9% 10 ML Syringe FLUSH PRN (21:40)
[2020-12-07] MEDS ORDERED: Water For Irrigation,Sterile 1,000 ML Container IRR PRN (21:40)
[2020-12-07] MEDS ORDERED: Misoprostol 25 MCG (1/4 of 100 MCG) Tab VAG PRN (21:40)
[2020-12-07] MEDS ORDERED: Carboprost Tromethamine 250 MCG/1 ML Amp IM PRN (21:40)
[2020-12-07] MEDS ORDERED: Lidocaine 1% 50 ML MDV INJECT PRN (21:40)
[2020-12-07] MEDS ORDERED: Sodium Chloride 0.9% 2.5 ML Syringe FLUSH PRN (21:40)
[2020-12-07] MEDS ORDERED: Misoprostol 25 MCG (1/4 of 100 MCG) Tab PO PRN (21:40)
[2020-12-07] MEDS ORDERED: Misoprostol 200 MCG Tab PO PRN (21:40)
[2020-12-07] MEDS ORDERED: Methylergonovine 0.2 MG/1 ML Amp IM PRN (21:40)
[2020-12-07] MEDS ORDERED: Terbutaline 1 MG/ML SDV SUBCUT PRN (21:40)
[2020-12-07] MEDS ORDERED: Oxytocin/0.9 % Sodium Chloride 30 UNIT/500 ML BAG IV SCH ×2 (21:45)
[2020-12-07] MEDS ORDERED: hydrOXYzine Pamoate 25 MG Cap PO PRN (21:48)
[2020-12-07] MEDS: Lactated Ringers 1,000 ML IV SCH (22:18)
[2020-12-08] MEDS ORDERED: Misoprostol 25 MCG (1/4 of 100 MCG) Tab VAG PRN (02:00)
[2020-12-08] MEDS: Misoprostol 25 MCG (1/4 of 100 MCG) Tab PO PRN ×4 (02:15→15:25)
[2020-12-08] MEDS: Misoprostol 25 MCG (1/4 of 100 MCG) Tab VAG PRN ×3 (02:15→11:00)
[2020-12-08] MEDS ORDERED: Acetaminophen 500 MG Tab PO ONE (15:40)
[2020-12-08] MEDS: Butorphanol 1 MG/ML SDV IVPUSH PRN ×2 (15:55→17:44)
[2020-12-08] MEDS ORDERED: Promethazine 25 MG Tab PO PRN (20:38)
[2020-12-08] MEDS: Nalbuphine 10 MG/1 ML Vial IVPUSH PRN (22:28)
[2020-12-09] MEDS: Nalbuphine 10 MG/1 ML Vial IVPUSH PRN ×2 (01:48→05:54)
[2020-12-09] MEDS: Misoprostol 25 MCG (1/4 of 100 MCG) Tab PO PRN (02:49)
[2020-12-09] MEDS: Lactated Ringers 1,000 ML IV SCH ×4 (07:46→21:56)
[2020-12-09] MEDS ORDERED: Ropivacaine HCl/PF 100 ML ONE ×2 (08:25→16:49)
[2020-12-09] MEDS ORDERED: fentaNYL 100 MCG/2 ML SDV ONE ×4 (08:25→18:39)
--- NOTE | 2020-12-09 08:44 | PCM.PREANE ---
Preanesthetic Assessment - Anesthesia/Transfusion/Family Hx Anesthesia History: Prior Anesthesia Without Reaction Family History of Anesthesia Reaction: No Transfusion History: No Prior Transfusion(s) - Physical Assessment NPO Status Date: 12/09/20 NPO Status Time: 07:15 Height: 1.63 m Weight: 107.275 kg ASA Class: 2 - Lab Values: Laboratory Last Values WBC 12.43 K/uL (4.0-11.0) H 12/07/20 21:16 RBC 4.14 M/uL (4.30-5.90) L 12/07/20 21:16 Hgb 11.8 g/dL (12.0-16.0) L 12/07/20 21:16 Hct 35.7 % (36.0-46.0) L 12/07/20 21:16 MCV 86.2 fL (80.0-98.0) 12/07/20 21:16 MCH 28.5 pg (27.0-32.0) 12/07/20 21:16 MCHC 33.1 g/dL (31.0-37.0) 12/07/20 21:16 RDW Std Deviation 52.9 fl (28.0-62.0) 12/07/20 21:16 RDW Coeff of Rick 17 % (11.0-15.0) H 12/07/20 21:16 Plt Count 228 K/uL (150-400) 12/07/20 21:16 MPV 11.40 fL (7.40-12.00) 12/07/20 21:16 Nucleated RBC % 0.0 /100WBC 12/07/20 21:16 Nucleated RBCs # 0 K/uL 12/07/20 21:16 SARS-CoV-2 RNA (JOSR) NEGATIVE (NEGATIVE) 12/07/20 21:25 Blood Type O POSITIVE 12/07/20 21:16 Antibody Screen NEGATIVE 12/07/20 21:16 - Allergies Allergies/Adverse Reactions: Allergies Allergy/AdvReac Type Severity Reaction Status Date / Time No Known Allergies Allergy Verified 08/31/20 22:02 - Acknowledgements Anesthesia Type Planned: Epidural Pt an Appropriate Candidate for the Planned Anesthesia: Yes Alternatives and Risks of Anesthesia Discussed w Pt/Guardian: Yes Pt/Guardian Understands and Agrees with Anesthesia Plan: Yes PreAnesthesia Questionnaire - Past Health History Medical/Surgical History: Denies Medical/Surgical History HEENT History: Reports: None Cardiovascular History: Reports: None Respiratory History: Reports: Other (See Below) Other Respiratory History: pneumonia nov 2017 Gastrointestinal History: Reports: None Genitourinary History: Reports: None SEATING CAPTAIN History: Reports: None Musculoskeletal History: Reports: Fracture, Other (See Below) Other Musculoskeletal History: C2 fx Neurological History: Reports: Other (See Below) Other Neuro History: broken C2 due to falling off horse Psychiatric History: Reports: Anxiety, Depression Endocrine/Metabolic History: Reports: None Dermatologic History: Reports: None - Infectious Disease History Infectious Disease History: Reports: Chicken Pox - Past Surgical History Respiratory Surgical History: Reports: None Female Surgical History: Reports: None Neurological Surgical History: Reports: Other (See Below) Other Neurological Surgeries/Procedures: using hallo - HOME MEDS Home Medications: Home Meds DULoxetine [Cymbalta] 30 mg PO DAILY 08/31/20 [History] - CURRENT (IN HOUSE) MEDS Current Meds: Current Medications Butorphanol Tartrate (Butorphanol 1 Mg/Ml Sdv) 1 mg IVPUSH Q1H PRN PRN Reason: Pain Last Admin: 12/08/20 17:44 Dose: 1 mg Documented by: Carboprost Tromethamine (Carboprost Tromethamine 250 Mcg/1 Ml Amp) 250 mcg IM ASDIRECTED PRN PRN Reason: Post Hemorrhage Hydroxyzine Pamoate (Hydroxyzine Pamoate 25 Mg Cap) 50 mg PO BEDTIME PRN PRN Reason: Insomnia Last Admin: 12/07/20 22:18 Dose: 50 mg Documented by: Oxytocin/Sodium Chloride (Oxytocin 30 Unit/500 Ml-Ns) 30 unit in 500 mls @ 999 mls/hr IV TITRATE SIMBA Tranexamic Acid 1,000 mg/ (Sodium Chloride) 110 mls @ 660 mls/hr IV ONETIME PRN PRN Reason: Bleeding Oxytocin/Sodium Chloride (Oxytocin 30 Unit/500 Ml-Ns) 30 unit in 500 mls @ 2 mls/hr IV TITRATE SIMBA; Protocol Lactated Ringer's (Ringers, Lactated) 1,000 mls @ 150 mls/hr IV ASDIRECTED SIMBA Last Admin: 12/09/20 07:46 Dose: 999 mls/hr Documented by: Lidocaine HCl (Lidocaine 1% 50 Ml Mdv) 50 ml INJECT ONETIME PRN PRN Reason: Laceration repair Methylergonovine Maleate (Methylergonovine 0.2 Mg/1 Ml Amp) 0.2 mg IM ASDIRECTED PRN PRN Reason: Post Hemorrhage Misoprostol (Misoprostol 200 Mcg Tab) 200 mcg PO ONETIME PRN PRN Reason: Post Hemorrhage Misoprostol (Misoprostol 25 Mcg (1/4 Of 100 Mcg) Tab) 25 mcg VAG ONETIME PRN PRN Reason: Cervical Ripening Last Admin: 12/07/20 22:17 Dose: 25 mcg Documented by: Misoprostol (Misoprostol 25 Mcg (1/4 Of 100 Mcg) Tab) 25 mcg PO ONETIME PRN PRN Reason: Cervical Ripening Last Admin: 12/07/20 22:17 Dose: 25 mcg Documented by: Misoprostol (Misoprostol 25 Mcg (1/4 Of 100 Mcg) Tab) 25 mcg PO Q4H PRN PRN Reason: Cervical Ripening Last Admin: 12/09/20 02:49 Dose: 25 mcg Documented by: Misoprostol (Misoprostol 25 Mcg (1/4 Of 100 Mcg) Tab) 25 mcg VAG Q4H PRN PRN Reason: Cervical Ripening Last Admin: 12/08/20 11:00 Dose: 25 mcg Documented by: Promethazine HCl (Promethazine 25 Mg Tab) 25 mg PO Q4H PRN PRN Reason: Nausea/Vomiting Last Admin: 12/08/20 22:38 Dose: 25 mg Documented by: Sodium Chloride (Sodium Chloride 0.9% 10 Ml Syringe) 10 ml FLUSH ASDIRECTED PRN PRN Reason: Keep Vein Open Last Admin: 12/08/20 15:56 Dose: 10 ml Documented by: Sodium Chloride (Sodium Chloride 0.9% 2.5 Ml Syringe) 2.5 ml FLUSH ASDIRECTED PRN PRN Reason: Keep Vein Open Sodium Chloride (Sodium Chloride 0.9% 10 Ml Sdv) 10 ml IV ASDIRECTED PRN PRN Reason: IV Use Sterile Water (Water For Irrigation,Sterile 1,000 Ml Container) 1,000 ml IRR ASDIRECTED PRN PRN Reason: delivery Terbutaline Sulfate (Terbutaline 1 Mg/Ml Sdv) 0.25 mg SUBCUT ASDIRECTED PRN PRN Reason: Tacysystole Discontinued Medications Acetaminophen (Acetaminophen 500 Mg Tab) 1,000 mg PO ONETIME ONE Stop: 12/08/20 15:41 Last Admin: 12/08/20 15:39 Dose: 1,000 mg Documented by: Fentanyl (Fentanyl 100 Mcg/2 Ml Sdv) Confirm Administered Dose 100 mcg .ROUTE .STK-MED ONE Stop: 12/09/20 08:26 Ropivacaine (Naropin 0.2%) Confirm Administered Dose 100 mls @ as directed .ROUTE .STK-MED ONE Stop: 12/09/20 08:26 Misoprostol (Misoprostol 25 Mcg (1/4 Of 100 Mcg) Tab) 25 mcg VAG Q4H PRN PRN Reason: Cervical Ripening Nalbuphine HCl (Nalbuphine 10 Mg/1 Ml Vial) 10 mg IVPUSH Q1H PRN PRN Reason: Pain (severe 7-10) Last Admin: 12/09/20 05:54 Dose: 10 mg Documented by:
--- NOTE | 2020-12-09 08:47 | PCM.PRNOTE ---
- Free Text/Narrative Note: Anes Note Patietn requests epidural for L&D. Sitting position level L3-L4 midline approach. Sterile technique. Chloraprep scrub to lumbar area. Sterile fenestrated drape applied. Epidural space easily achieved single attempt with ease usignLOR technique. IVELISSE at 4 cm. Cath threaded 5 cm with ease. Cath secured at skin using sterile clear adhesive dressing. Test 0835 3 cc 1.5% lido with epi negative. 0837 Load 10 cc 0.2% ropivicaine with 1 mcg cc fentanyl in slow divided doses. 0841 Pump started wtih 90 cc same solution. Rate is 8 cc hr with 6cc q 20 min prn bolus. Naman well. 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
[2020-12-09] MEDS ORDERED: Lidocaine 2% with EPINEPHrine 1:200,000 20 ML SDV ONE ×2 (13:31→18:39)
--- NOTE | 2020-12-09 13:38 | PCM.PRNOTE ---
- Free Text/Narrative Note: Anes Note Patient reports increased pressure and discomfort in sacral area. A top up dose of 100 mcg fentanyl plus 5 cc 2% lido with epi given as a sitting dose. Time with patient [id number] Mo Brennan CRNA
--- NOTE | 2020-12-09 16:14 | PCM.PNLD ---
Labor Progress Note - VS & Meds Vital Signs: Hemodynamically stable, afebrile. Slightly elevated BPs noted 130s/90s. See flowsheet. Active Medications: Current Medications Butorphanol Tartrate (Butorphanol 1 Mg/Ml Sdv) 1 mg IVPUSH Q1H PRN PRN Reason: Pain Last Admin: 12/08/20 17:44 Dose: 1 mg Documented by: Carboprost Tromethamine (Carboprost Tromethamine 250 Mcg/1 Ml Amp) 250 mcg IM ASDIRECTED PRN PRN Reason: Post Hemorrhage Hydroxyzine Pamoate (Hydroxyzine Pamoate 25 Mg Cap) 50 mg PO BEDTIME PRN PRN Reason: Insomnia Last Admin: 12/07/20 22:18 Dose: 50 mg Documented by: Oxytocin/Sodium Chloride (Oxytocin 30 Unit/500 Ml-Ns) 30 unit in 500 mls @ 999 mls/hr IV TITRATE SIMBA Tranexamic Acid 1,000 mg/ (Sodium Chloride) 110 mls @ 660 mls/hr IV ONETIME PRN PRN Reason: Bleeding Oxytocin/Sodium Chloride (Oxytocin 30 Unit/500 Ml-Ns) 30 unit in 500 mls @ 2 mls/hr IV TITRATE SIMBA; Protocol Last Titration: 12/09/20 14:56 Dose: 20 munits/min, 20 mls/hr Documented by: Lactated Ringer's (Ringers, Lactated) 1,000 mls @ 150 mls/hr IV ASDIRECTED SIMBA Last Admin: 12/09/20 15:54 Dose: 150 mls/hr Documented by: Lidocaine HCl (Lidocaine 1% 50 Ml Mdv) 50 ml INJECT ONETIME PRN PRN Reason: Laceration repair Methylergonovine Maleate (Methylergonovine 0.2 Mg/1 Ml Amp) 0.2 mg IM ASDIRECTED PRN PRN Reason: Post Hemorrhage Misoprostol (Misoprostol 200 Mcg Tab) 200 mcg PO ONETIME PRN PRN Reason: Post Hemorrhage Misoprostol (Misoprostol 25 Mcg (1/4 Of 100 Mcg) Tab) 25 mcg VAG ONETIME PRN PRN Reason: Cervical Ripening Last Admin: 12/07/20 22:17 Dose: 25 mcg Documented by: Misoprostol (Misoprostol 25 Mcg (1/4 Of 100 Mcg) Tab) 25 mcg PO ONETIME PRN PRN Reason: Cervical Ripening Last Admin: 12/07/20 22:17 Dose: 25 mcg Documented by: Misoprostol (Misoprostol 25 Mcg (1/4 Of 100 Mcg) Tab) 25 mcg PO Q4H PRN PRN Reason: Cervical Ripening Last Admin: 12/09/20 02:49 Dose: 25 mcg Documented by: Misoprostol (Misoprostol 25 Mcg (1/4 Of 100 Mcg) Tab) 25 mcg VAG Q4H PRN PRN Reason: Cervical Ripening Last Admin: 12/08/20 11:00 Dose: 25 mcg Documented by: Promethazine HCl (Promethazine 25 Mg Tab) 25 mg PO Q4H PRN PRN Reason: Nausea/Vomiting Last Admin: 12/08/20 22:38 Dose: 25 mg Documented by: Sodium Chloride (Sodium Chloride 0.9% 10 Ml Syringe) 10 ml FLUSH ASDIRECTED PRN PRN Reason: Keep Vein Open Last Admin: 12/08/20 15:56 Dose: 10 ml Documented by: Sodium Chloride (Sodium Chloride 0.9% 2.5 Ml Syringe) 2.5 ml FLUSH ASDIRECTED PRN PRN Reason: Keep Vein Open Sodium Chloride (Sodium Chloride 0.9% 10 Ml Sdv) 10 ml IV ASDIRECTED PRN PRN Reason: IV Use Sterile Water (Water For Irrigation,Sterile 1,000 Ml Container) 1,000 ml IRR ASDIRECTED PRN PRN Reason: delivery Terbutaline Sulfate (Terbutaline 1 Mg/Ml Sdv) 0.25 mg SUBCUT ASDIRECTED PRN PRN Reason: Tacysystole Discontinued Medications Acetaminophen (Acetaminophen 500 Mg Tab) 1,000 mg PO ONETIME ONE Stop: 12/08/20 15:41 Last Admin: 12/08/20 15:39 Dose: 1,000 mg Documented by: Fentanyl (Fentanyl 100 Mcg/2 Ml Sdv) Confirm Administered Dose 100 mcg .ROUTE .STK-MED ONE Stop: 12/09/20 08:26 Fentanyl (Fentanyl 100 Mcg/2 Ml Sdv) Confirm Administered Dose 100 mcg .ROUTE .STK-MED ONE Stop: 12/09/20 13:32 Ropivacaine (Naropin 0.2%) Confirm Administered Dose 100 mls @ as directed .ROUTE .STK-MED ONE Stop: 12/09/20 08:26 Lidocaine/Epinephrine (Lidocaine 2% With Epinephrine 1:200,000 20 Ml Sdv) Confirm Administered Dose 20 ml .ROUTE .STK-MED ONE Stop: 12/09/20 13:32 Misoprostol (Misoprostol 25 Mcg (1/4 Of 100 Mcg) Tab) 25 mcg VAG Q4H PRN PRN Reason: Cervical Ripening Nalbuphine HCl (Nalbuphine 10 Mg/1 Ml Vial) 10 mg IVPUSH Q1H PRN PRN Reason: Pain (severe 7-10) Last Admin: 12/09/20 05:54 Dose: 10 mg Documented by: - Uterine Contractions Uterine Monitoring Mode: IUPC Contraction Frequency (min): 1-3 Contraction Duration (sec): 60-70 Contraction Intensity: Moderate to Strong Uterine Resting Tone: Soft - Monitoring Monitor Mode: External Ultrasound Heart Rate (FHR) Baseline: 150 Heart Rate (FHR) Variability: Moderate (6-25 bmp) Accelerations: Present, 15x15 Decelerations: Variable Strip Review: Category II - Vaginal Exam Dilation (cm): 3-4 Effacement (Percent): 70-80 Station: -2 Cervical Position: Posterior Sterile Vaginal Exam Performed By: Krystin Diaz Vaginal Exam Comment: Fanny Diaz CNM - Labor Progress (Free Text) Labor Progress: Prachi is a 30 yo at 41+2 weeks gestation (HERB(LMP) 11/30/2020) that presented 12/08/2020 for post-dates IOL. Patient denies any problems or concerns at this time. Reports + FM. Denies vaginal bleeding. 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 SVE completed by EDMUNDO 0355 today to assess cook catheter placement after 12 hours, gentle traction applied and easily removed from vaginal canal. SVE 2-3/60-70/-2, stretchy, posterior. AROM completed 035, large clear non-odorous fluid, uncomplicated, head well applied. 25 mcg oral cytotec given just prior to AROM per RN. Position changes, ambulation, and peanut ball in use. Patient reports increased pain, and BLE epidural analgesia achieved around 0800. SVE 3-4 cm per RN at that time. Pitocin titration initiated by RN at ~ 0900. SVE completed once again at 1200 pm, 3-4/70-80/-2, soft and stretchy, posterior per CNM. IUPC placed posteriorly easily and without incident due to inability to adequately monitor contractions. MVU goal of ~200 with max pitocin titration at 20 milliunits/min. Dr. Petersen continually updated on patient status and agreeable with POC. Plan to assess cervical dilation at ~1630 today, if no or inadequate change made plan to discuss RBAs/SEs of primary low transverse delivery for failure to induce. Patient agreeable with POC.
--- NOTE | 2020-12-09 16:29 | PCM.PNLD ---
Labor Progress Note - VS & Meds Vital Signs: 12/08/2020 ~ 3:30 pm. Hemodynamically stable, afebrile. Mild BP elevation 140s/90s-100s with 166/102 once and then return to normotensive status thereafter. Increasing pain at that time. Active Medications: Current Medications Butorphanol Tartrate (Butorphanol 1 Mg/Ml Sdv) 1 mg IVPUSH Q1H PRN PRN Reason: Pain Last Admin: 12/08/20 17:44 Dose: 1 mg Documented by: Carboprost Tromethamine (Carboprost Tromethamine 250 Mcg/1 Ml Amp) 250 mcg IM ASDIRECTED PRN PRN Reason: Post Hemorrhage Hydroxyzine Pamoate (Hydroxyzine Pamoate 25 Mg Cap) 50 mg PO BEDTIME PRN PRN Reason: Insomnia Last Admin: 12/07/20 22:18 Dose: 50 mg Documented by: Oxytocin/Sodium Chloride (Oxytocin 30 Unit/500 Ml-Ns) 30 unit in 500 mls @ 999 mls/hr IV TITRATE SIMBA Tranexamic Acid 1,000 mg/ (Sodium Chloride) 110 mls @ 660 mls/hr IV ONETIME PRN PRN Reason: Bleeding Oxytocin/Sodium Chloride (Oxytocin 30 Unit/500 Ml-Ns) 30 unit in 500 mls @ 2 mls/hr IV TITRATE SIMBA; Protocol Last Titration: 12/09/20 14:56 Dose: 20 munits/min, 20 mls/hr Documented by: Lactated Ringer's (Ringers, Lactated) 1,000 mls @ 150 mls/hr IV ASDIRECTED SIMBA Last Admin: 12/09/20 15:54 Dose: 150 mls/hr Documented by: Lidocaine HCl (Lidocaine 1% 50 Ml Mdv) 50 ml INJECT ONETIME PRN PRN Reason: Laceration repair Methylergonovine Maleate (Methylergonovine 0.2 Mg/1 Ml Amp) 0.2 mg IM ASDIRECTED PRN PRN Reason: Post Hemorrhage Misoprostol (Misoprostol 200 Mcg Tab) 200 mcg PO ONETIME PRN PRN Reason: Post Hemorrhage Misoprostol (Misoprostol 25 Mcg (1/4 Of 100 Mcg) Tab) 25 mcg VAG ONETIME PRN PRN Reason: Cervical Ripening Last Admin: 12/07/20 22:17 Dose: 25 mcg Documented by: Misoprostol (Misoprostol 25 Mcg (1/4 Of 100 Mcg) Tab) 25 mcg PO ONETIME PRN PRN Reason: Cervical Ripening Last Admin: 12/07/20 22:17 Dose: 25 mcg Documented by: Misoprostol (Misoprostol 25 Mcg (1/4 Of 100 Mcg) Tab) 25 mcg PO Q4H PRN PRN Reason: Cervical Ripening Last Admin: 12/09/20 02:49 Dose: 25 mcg Documented by: Misoprostol (Misoprostol 25 Mcg (1/4 Of 100 Mcg) Tab) 25 mcg VAG Q4H PRN PRN Reason: Cervical Ripening Last Admin: 12/08/20 11:00 Dose: 25 mcg Documented by: Promethazine HCl (Promethazine 25 Mg Tab) 25 mg PO Q4H PRN PRN Reason: Nausea/Vomiting Last Admin: 12/08/20 22:38 Dose: 25 mg Documented by: Sodium Chloride (Sodium Chloride 0.9% 10 Ml Syringe) 10 ml FLUSH ASDIRECTED PRN PRN Reason: Keep Vein Open Last Admin: 12/08/20 15:56 Dose: 10 ml Documented by: Sodium Chloride (Sodium Chloride 0.9% 2.5 Ml Syringe) 2.5 ml FLUSH ASDIRECTED PRN PRN Reason: Keep Vein Open Sodium Chloride (Sodium Chloride 0.9% 10 Ml Sdv) 10 ml IV ASDIRECTED PRN PRN Reason: IV Use Sterile Water (Water For Irrigation,Sterile 1,000 Ml Container) 1,000 ml IRR ASDIRECTED PRN PRN Reason: delivery Terbutaline Sulfate (Terbutaline 1 Mg/Ml Sdv) 0.25 mg SUBCUT ASDIRECTED PRN PRN Reason: Tacysystole Discontinued Medications Acetaminophen (Acetaminophen 500 Mg Tab) 1,000 mg PO ONETIME ONE Stop: 12/08/20 15:41 Last Admin: 12/08/20 15:39 Dose: 1,000 mg Documented by: Fentanyl (Fentanyl 100 Mcg/2 Ml Sdv) Confirm Administered Dose 100 mcg .ROUTE .STK-MED ONE Stop: 12/09/20 08:26 Fentanyl (Fentanyl 100 Mcg/2 Ml Sdv) Confirm Administered Dose 100 mcg .ROUTE .STK-MED ONE Stop: 12/09/20 13:32 Ropivacaine (Naropin 0.2%) Confirm Administered Dose 100 mls @ as directed .ROUTE .STK-MED ONE Stop: 12/09/20 08:26 Lidocaine/Epinephrine (Lidocaine 2% With Epinephrine 1:200,000 20 Ml Sdv) Confirm Administered Dose 20 ml .ROUTE .STK-MED ONE Stop: 12/09/20 13:32 Misoprostol (Misoprostol 25 Mcg (1/4 Of 100 Mcg) Tab) 25 mcg VAG Q4H PRN PRN Reason: Cervical Ripening Nalbuphine HCl (Nalbuphine 10 Mg/1 Ml Vial) 10 mg IVPUSH Q1H PRN PRN Reason: Pain (severe 7-10) Last Admin: 12/09/20 05:54 Dose: 10 mg Documented by: - Uterine Contractions Uterine Monitoring Mode: External [place] Contraction Frequency (min): 1-3 Contraction Duration (sec): 50-70 Contraction Intensity: Mild Uterine Resting Tone: Soft - Monitoring Monitor Mode: External Ultrasound Heart Rate (FHR) Baseline: 145 Heart Rate (FHR) Variability: Moderate (6-25 bmp) Accelerations: Present, 15x15 Decelerations: None, Variable Strip Review: Category I - Vaginal Exam Dilation (cm): 1 Effacement (Percent): 60 Station: -2 Cervical Position: Posterior Sterile Vaginal Exam Performed By: Krystin Diaz Vaginal Exam Comment: Fanny Diaz CNM - Labor Progress (Free Text) Labor Progress: 12/08/2020 at ~3:30 pm: Prachi is a 30 yo at 41+1 weeks gestation (HERB(LMP) 11/30/2020) that presented 12/07/2020 for post-dates IOL. Patient denies any problems or concerns at this time. Reports + FM. Denies vaginal bleeding, LOF, or significant pain at that time. 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 SVE completed by EDMUNDO 3:30 pm to assess necessity for cook catheter placement due to lack of cervical change after 4 cytotec doses with contractions occuring every 1-3 min. SVE 0-1/60/-2, hard, posterior, vertex, membranes intact. Cook catheter placed without difficulty with 60 ml/60 ml sterile saline. Plan to administer traction if not spontaneously expelled after 6 hours. Plan to D/C and reassess cervical softening if not spontaneously expelled after 12 hours. Patient and RN ins tructed to apply gentle traction often and with ambulation. May administer 25 mcg cytotec orally if needed to stimulate uterine contractions. Once expelled, plan SVE to assess cervical readiness for pitocin titration. Dr. Petersen notified and agreeable with POC.
--- NOTE | 2020-12-09 16:59 | PCM.PRNOTE ---
- Free Text/Narrative Note: Anes Note Epidural bag change. A new bag of 100 cc 0.2% ropivicaine with 1 mcg ccc fentanyl was placed. Rate is 8 cc hr with 6 cc q 20 min prn bolus. Time with patient [id number] Mo Brennan CRNA
[2020-12-09] MEDS ORDERED: Bupivacaine 0.5% 10 ML SDV ONE (17:51)
[2020-12-09] MEDS ORDERED: Bupivacaine 0.5% 30 ML SDV ONE (18:13)
[2020-12-09] MEDS ORDERED: Phenylephrine 1% 10 MG/ML SDV ONE (18:33)
[2020-12-09] MEDS ORDERED: Ondansetron 4 MG/2 ML SDV ONE (18:33)
[2020-12-09] MEDS ORDERED: Ketorolac 30 MG/ML SDV ONE (18:33)
[2020-12-09] MEDS ORDERED: Oxytocin 10 Units/1 ML SDV ONE (18:33)
[2020-12-09] MEDS ORDERED: ceFAZolin 1 GM Vial ONE (18:46)
[2020-12-09] MEDS ORDERED: Sodium Chloride 0.9% 20 ML ONE (18:46)
[2020-12-09] MEDS ORDERED: Morphine PF 10 MG/10 ML SDV ONE (19:11)
[2020-12-09] MEDS ORDERED: Midazolam 1 MG/ML 2 ML SDV ONE (19:34)
[2020-12-09] MEDS ORDERED: fentaNYL 100 MCG/2 ML SDV IVPUSH PRN (19:35)
[2020-12-09] MEDS ORDERED: Naloxone 0.4 MG/ML Syringe IVPUSH PRN (19:35)
[2020-12-09] MEDS ORDERED: Acetaminophen/oxyCODONE 325-5 MG Tab PO PRN ×2 (19:35→19:57)
[2020-12-09] MEDS ORDERED: Nalbuphine 10 MG/1 ML Vial IVPUSH PRN (19:35)
[2020-12-09] MEDS ORDERED: Ondansetron 4 MG/2 ML SDV IVPUSH PRN ×2 (19:35→19:57)
[2020-12-09] MEDS ORDERED: Misoprostol 200 MCG Tab RECTAL PRN (19:57)
[2020-12-09] MEDS ORDERED: Methylergonovine 0.2 MG/1 ML Amp IM PRN (19:57)
[2020-12-09] MEDS ORDERED: diphenhydrAMINE 50 MG/ML SDV IVPUSH PRN (19:57)
[2020-12-09] MEDS ORDERED: Tranexamic Acid 1,000 MG in Sodium Chloride 0.9% 100 ML IV PRN (19:57)
[2020-12-09] MEDS ORDERED: Oxytocin 10 Units/1 ML SDV IM PRN (19:57)
[2020-12-09] MEDS ORDERED: Lanolin 100% Cream 7 GM Tube TOP PRN (19:57)
[2020-12-09] MEDS ORDERED: Bisacodyl 10 MG Supp RECTAL PRN (19:57)
[2020-12-09] MEDS ORDERED: Lactated Ringers 1,000 ML IV SCH (20:00)
--- NOTE | 2020-12-09 20:01 | PCM.OPNOTE ---
- General Post-Op/Procedure Note Date of Surgery/Procedure: 12/09/20 Operative Procedure(s): Primary C/section. Pre Op Diagnosis: [id number] faild induction. Post-Op Diagnosis: Same Anesthesia Technique: Epidural Primary Surgeon: Kailash Petersen Brim Raiser: Fanny Villagomez EBL in mLs: 1,100 Complications: None Condition: Good Free Text/Narrative:: Intake & Output 12/09/20 12/09/20 12/09/20 06:59 14:59 22:59 Intake Total 1000 900 Balance 1000 900
--- NOTE | 2020-12-09 20:49 | PCM.POSTAN ---
POST ANESTHESIA ASSESSMENT - MENTAL STATUS Mental Status: Alert - RESPIRATORY Respiratory Status: Respiratory Rate WNL - CARDIOVASCULAR CV Status: Pulse Rate WNL - GASTROINTESTINAL GI Status: No Symptoms - POST OP HYDRATION Hydration Status: Adequate & Stable
[2020-12-10] MEDS: Ketorolac 30 MG/ML SDV IVPUSH SCH ×5 (00:44→20:32)
[2020-12-10] MEDS: diphenhydrAMINE 50 MG/ML SDV IVPUSH PRN ×2 (01:11→05:00)
[2020-12-10] MEDS: Lactated Ringers 1,000 ML IV SCH ×2 (05:24→13:55)
[2020-12-10] MEDS: Docusate Sodium 100 MG Cap PO SCH ×2 (07:59→20:34)
--- NOTE | 2020-12-10 08:20 | PCM48HPAN ---
Post Anesthesia Note - EVALUATION WITHIN 48HRS OF ANESTHETIC Vital Signs in Normal Range: Yes Patient Participated in Evaluation: Yes Respiratory Function Stable: Yes Airway Patent: Yes Cardiovascular Function Stable: Yes Hydration Status Stable: Yes Pain Control Satisfactory: Yes Nausea and Vomiting Control Satisfactory: Yes Mental Status Recovered: Yes Vital Signs: Last Vital Signs Temp 36.4 C 12/10/20 06:00 Pulse 110 H 12/10/20 07:00 Resp 16 12/10/20 07:00 BP 123/78 12/10/20 04:00 Pulse Ox 95 12/10/20 07:00
--- NOTE | 2020-12-10 09:59 | PCM.PNPP ---
- General Info Date of Service: 12/10/20 Admission Dx/Problem (Free Text): Admission Diagnosis/Problem Admission Diagnosis/Problem 12/07/20 21:08 Prachi is a 30 yo current S/P primary LTCS at 41+2 weeks gestation (HERB(LMP) 11/30/2020) due to failed post-dates IOL. O pos, RI, GBS neg. Primary LTCS complicated by EBL 1,100. VSS, afebrile. Mild tachycardia noted in the 110s. Patient denies any problems or concerns at this time except "I am so hot. It's hot in here". 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 Patient ambulating, voiding, eating, and hydrating without issue. Patient breast, bottle, and pumping without issue. Moderate vaginal bleeding without clots. Patient expresses desire to be discharged home, or at least for baby to be allowed downstairs to see her mother prior to her departure planned for tomorrow. Functional Status: Reports: Pain Controlled, Tolerating Diet, Ambulating, Urinating - Review of Systems General: Reports: No Symptoms HEENT: Reports: No Symptoms Pulmonary: Reports: No Symptoms Cardiovascular: Reports: No Symptoms Gastrointestinal: Reports: No Symptoms Genitourinary: Reports: No Symptoms Musculoskeletal: Reports: No Symptoms Skin: Reports: No Symptoms Neurological: Reports: No Symptoms Psychiatric: Reports: No Symptoms - General Info Date of Service: 12/10/20 - Patient Data Vital Signs - Most Recent: Last Vital Signs Temp 97.6 F 12/10/20 06:00 Pulse 110 H 12/10/20 07:00 Resp 16 12/10/20 07:00 BP 123/78 12/10/20 04:00 Pulse Ox 95 12/10/20 07:00 Weight - Most Recent: 236 lb 8 oz I&O - Last 24 Hours: Intake & Output 12/09/20 12/10/20 12/10/20 22:59 06:59 14:59 Intake Total 900 Output Total 600 185 Balance 300 -185 Lab Results - Last 24 Hours: Laboratory Results - last 24 hr 12/09/20 12/10/20 Range/Units 23:08 05:03 Hgb 10.0 L 9.0 L (12.0-16.0) g/dL Hct 30.7 L 27.4 L (36.0-46.0) % Med Orders - Current: Current Medications Bisacodyl (Bisacodyl 10 Mg Supp) 10 mg RECTAL ONETIME PRN PRN Reason: Constipation Butorphanol Tartrate (Butorphanol 1 Mg/Ml Sdv) 1 mg IVPUSH Q1H PRN PRN Reason: Pain Last Admin: 12/08/20 17:44 Dose: 1 mg Documented by: Carboprost Tromethamine (Carboprost Tromethamine 250 Mcg/1 Ml Amp) 250 mcg IM ASDIRECTED PRN PRN Reason: Post Hemorrhage Diphenhydramine HCl (Diphenhydramine 50 Mg/Ml Sdv) 25 mg IVPUSH Q4H PRN PRN Reason: Itching Stop: 12/10/20 19:35 Last Admin: 12/10/20 05:00 Dose: 25 mg Documented by: Diphenhydramine HCl (Diphenhydramine 50 Mg/Ml Sdv) 25 mg IVPUSH Q6H PRN PRN Reason: Itching or Nausea Docusate Sodium (Docusate Sodium 100 Mg Cap) 100 mg PO BID SIMBA Last Admin: 12/10/20 07:59 Dose: 100 mg Documented by: Emollient Ointment (Lanolin 100% Cream 7 Gm Tube) 0 gm TOP ASDIRECTED PRN PRN Reason: Sore Nipples Fentanyl (Fentanyl 100 Mcg/2 Ml Sdv) 50 mcg IVPUSH Q1H PRN PRN Reason: Pain (severe 7-10) Hydroxyzine Pamoate (Hydroxyzine Pamoate 25 Mg Cap) 50 mg PO BEDTIME PRN PRN Reason: Insomnia Last Admin: 12/07/20 22:18 Dose: 50 mg Documented by: Oxytocin/Sodium Chloride (Oxytocin 30 Unit/500 Ml-Ns) 30 unit in 500 mls @ 999 mls/hr IV TITRATE SIMBA Tranexamic Acid 1,000 mg/ (Sodium Chloride) 110 mls @ 660 mls/hr IV ONETIME PRN PRN Reason: Bleeding Oxytocin/Sodium Chloride (Oxytocin 30 Unit/500 Ml-Ns) 30 unit in 500 mls @ 2 mls/hr IV TITRATE SIMBA; Protocol Last Titration: 12/09/20 18:33 Dose: 0 munits/min, 0 mls/hr Documented by: Lactated Ringer's (Ringers, Lactated) 1,000 mls @ 150 mls/hr IV ASDIRECTED [facility] Last Admin: 12/10/20 05:24 Dose: 150 mls/hr Documented by: Lactated Ringer's (Ringers, Lactated) 1,000 mls @ 125 mls/hr IV ASDIRECTED [facility] Tranexamic Acid 1,000 mg/ (Sodium Chloride) 110 mls @ 660 mls/hr IV ONETIME PRN PRN Reason: Bleeding Ibuprofen (Ibuprofen 800 Mg Tab) 800 mg PO Q8H PRN PRN Reason: mild pain or fever Ketorolac Tromethamine (Ketorolac 30 Mg/Ml Sdv) 30 mg IVPUSH Q6H SIMBA Stop: 12/10/20 20:01 Last Admin: 12/10/20 07:59 Dose: 30 mg Documented by: Lidocaine HCl (Lidocaine 1% 50 Ml Mdv) 50 ml INJECT ONETIME PRN PRN Reason: Laceration repair Methylergonovine Maleate (Methylergonovine 0.2 Mg/1 Ml Amp) 0.2 mg IM ASDIRECTED PRN PRN Reason: Post Hemorrhage Methylergonovine Maleate (Methylergonovine 0.2 Mg/1 Ml Amp) 0.2 mg IM ONETIME PRN PRN Reason: Excessive Vaginal Bleeding Misoprostol (Misoprostol 200 Mcg Tab) 200 mcg PO ONETIME PRN PRN Reason: Post Hemorrhage Misoprostol (Misoprostol 25 Mcg (1/4 Of 100 Mcg) Tab) 25 mcg VAG ONETIME PRN PRN Reason: Cervical Ripening Last Admin: 12/07/20 22:17 Dose: 25 mcg Documented by: Misoprostol (Misoprostol 25 Mcg (1/4 Of 100 Mcg) Tab) 25 mcg PO ONETIME PRN PRN Reason: Cervical Ripening Last Admin: 12/07/20 22:17 Dose: 25 mcg Documented by: Misoprostol (Misoprostol 25 Mcg (1/4 Of 100 Mcg) Tab) 25 mcg PO Q4H PRN PRN Reason: Cervical Ripening Last Admin: 12/09/20 02:49 Dose: 25 mcg Documented by: Misoprostol (Misoprostol 25 Mcg (1/4 Of 100 Mcg) Tab) 25 mcg VAG Q4H PRN PRN Reason: Cervical Ripening Last Admin: 12/08/20 11:00 Dose: 25 mcg Documented by: Misoprostol (Misoprostol 200 Mcg Tab) 1,000 mcg RECTAL ONETIME PRN PRN Reason: excessive bleeding Nalbuphine HCl (Nalbuphine 10 Mg/1 Ml Vial) 5 mg IVPUSH ASDIRECTED PRN PRN Reason: Itching Naloxone HCl (Naloxone 0.4 Mg/Ml Syringe) 0.1 mg IVPUSH ONETIME PRN PRN Reason: Respiratory Depression Stop: 12/10/20 19:35 Ondansetron HCl (Ondansetron 4 Mg/2 Ml Sdv) 4 mg IVPUSH Q6H PRN PRN Reason: Nausea Ondansetron HCl (Ondansetron 4 Mg/2 Ml Sdv) 4 mg IVPUSH Q4H PRN PRN Reason: Nausea/Vomiting Oxycodone/Acetaminophen (Acetaminophen/Oxycodone 325-5 Mg Tab) 2 tab PO Q6H PRN PRN Reason: Pain (moderate 4-6) Oxycodone/Acetaminophen (Acetaminophen/Oxycodone 325-5 Mg Tab) 1 tab PO Q4H PRN PRN Reason: Pain (moderate 4-6) Oxycodone/Acetaminophen (Acetaminophen/Oxycodone 325-5 Mg Tab) 2 tab PO Q4H PRN PRN Reason: Pain (moderate 4-6) Oxytocin (Oxytocin 10 Units/1 Ml Sdv) 10 unit IM ASDIRECTED PRN PRN Reason: Excessive Vaginal Bleeding Promethazine HCl (Promethazine 25 Mg Tab) 25 mg PO Q4H PRN PRN Reason: Nausea/Vomiting Last Admin: 12/08/20 22:38 Dose: 25 mg Documented by: Sodium Chloride (Sodium Chloride 0.9% 10 Ml Syringe) 10 ml FLUSH ASDIRECTED PRN PRN Reason: Keep Vein Open Last Admin: 12/08/20 15:56 Dose: 10 ml Documented by: Sodium Chloride (Sodium Chloride 0.9% 2.5 Ml Syringe) 2.5 ml FLUSH ASDIRECTED PRN PRN Reason: Keep Vein Open Sodium Chloride (Sodium Chloride 0.9% 10 Ml Sdv) 10 ml IV ASDIRECTED PRN PRN Reason: IV Use Sterile Water (Water For Irrigation,Sterile 1,000 Ml Container) 1,000 ml IRR ASDIRECTED PRN PRN Reason: delivery Terbutaline Sulfate (Terbutaline 1 Mg/Ml Sdv) 0.25 mg SUBCUT ASDIRECTED PRN PRN Reason: Tacysystole Discontinued Medications Acetaminophen (Acetaminophen 500 Mg Tab) 1,000 mg PO ONETIME ONE Stop: 12/08/20 15:41 Last Admin: 12/08/20 15:39 Dose: 1,000 mg Documented by: Bupivacaine HCl (Bupivacaine 0.5% 10 Ml Sdv) Confirm Administered Dose 10 ml .ROUTE .STK-MED ONE Stop: 12/09/20 17:52 Bupivacaine HCl (Bupivacaine 0.5% 30 Ml Sdv) Confirm Administered Dose 30 ml .ROUTE .STK-MED ONE Stop: 12/09/20 18:14 Cefazolin Sodium (Cefazolin 1 Gm Vial) Confirm Administered Dose 2 gm .ROUTE .STK-MED ONE Stop: 12/09/20 18:47 Fentanyl (Fentanyl 100 Mcg/2 Ml Sdv) Confirm Administered Dose 100 mcg .ROUTE .ST-MED ONE Stop: 12/09/20 08:26 Fentanyl (Fentanyl 100 Mcg/2 Ml Sdv) Confirm Administered Dose 100 mcg .ROUTE .STK-MED ONE Stop: 12/09/20 13:32 Fentanyl (Fentanyl 100 Mcg/2 Ml Sdv) Confirm Administered Dose 100 mcg .ROUTE .STK-MED ONE Stop: 12/09/20 16:50 Fentanyl (Fentanyl 100 Mcg/2 Ml Sdv) Confirm Administered Dose 100 mcg .ROUTE .STK-MED ONE Stop: 12/09/20 18:40 Ropivacaine (Naropin 0.2%) Confirm Administered Dose 100 mls @ as directed .ROUTE .ST-MED ONE Stop: 12/09/20 08:26 Ropivacaine (Naropin 0.2%) Confirm Administered Dose 100 mls @ as directed .ROUTE .STK-MED ONE Stop: 12/09/20 16:50 Sodium Chloride (Normal Saline) Confirm Administered Dose 20 mls @ as directed .ROUTE .STK-MED ONE Stop: 12/09/20 18:47 Ketorolac Tromethamine (Ketorolac 30 Mg/Ml Sdv) Confirm Administered Dose 30 mg .ROUTE .STK-MED ONE Stop: 12/09/20 18:34 Lidocaine/Epinephrine (Lidocaine 2% With Epinephrine 1:200,000 20 Ml Sdv) Confirm Administered Dose 20 ml .ROUTE .STK-MED ONE Stop: 12/09/20 13:32 Lidocaine/Epinephrine (Lidocaine 2% With Epinephrine 1:200,000 20 Ml Sdv) Confirm Administered Dose 20 ml .ROUTE .STK-MED ONE Stop: 12/09/20 18:40 Midazolam HCl (Midazolam 1 Mg/Ml 2 Ml Sdv) Confirm Administered Dose 2 mg .ROUTE .STK-MED ONE Stop: 12/09/20 19:35 Misoprostol (Misoprostol 25 Mcg (1/4 Of 100 Mcg) Tab) 25 mcg VAG Q4H PRN PRN Reason: Cervical Ripening Morphine Sulfate (Morphine Pf 10 Mg/10 Ml Sdv) Confirm Administered Dose 10 mg .ROUTE .STK-MED ONE Stop: 12/09/20 19:12 Nalbuphine HCl (Nalbuphine 10 Mg/1 Ml Vial) 10 mg IVPUSH Q1H PRN PRN Reason: Pain (severe 7-10) Last Admin: 12/09/20 05:54 Dose: 10 mg Documented by: Ondansetron HCl (Ondansetron 4 Mg/2 Ml Sdv) Confirm Administered Dose 4 mg .ROUTE .STK-MED ONE Stop: 12/09/20 18:34 Oxytocin (Oxytocin 10 Units/1 Ml Sdv) Confirm Administered Dose 20 unit .ROUTE .STK-MED ONE Stop: 12/09/20 18:34 Phenylephrine HCl (Phenylephrine 1% 10 Mg/Ml Sdv) Confirm Administered Dose 10 mg .ROUTE .STK-MED ONE Stop: 12/09/20 18:34 - Interaction Infant Disposition, : to Nursery Interaction: Not Interacting Feeding: Attempted ; Nursed Fair/Poor, Bottle Fed , Encouraged to Breastfeed Support Person: Significant Other - Recovery Exam Fundal Tone: Firm Fundal Level: 1 Fingerbreadths Below Umbilicus Fundal Placement: Midline Lochia Amount: Moderate Lochia Color: Rubra/Red Perineum Description: Intact, Minimal Bruising/Swelling Episiotomy/Laceration: None - Exam General: Alert, Oriented, Cooperative, No Acute Distress HEENT: Pupils Equal, Pupils Reactive, Mucous Membr. Moist/[place], Other (Gums pale.) Neck: Supple Lungs: Clear to Auscultation, Normal Respiratory Effort Cardiovascular: Regular Rhythm, Tachycardia GI/Abdominal Exam: Normal Bowel Sounds, Soft, Non-Tender, No Organomegaly, No Distention Extremities: Normal Inspection, Normal Range of Motion, Non-Tender, No Pedal Edema, Normal Capillary Refill Skin: Warm, Intact, Moist Wound/Incisions: Dressing Dry and Intact (Scant old blood noted.) Psy/Mental Status: Alert, Normal Affect, Normal Mood - Problem List & Annotations (1) Status post primary low transverse section SNOMED Code(s): 695563574, 35837255, 609214111, 195797862, 422176275 Code(s): Z98.891 - HISTORY OF UTERINE SCAR FROM PREVIOUS SURGERY Status: Acute Priority: High Current Visit: Yes (2) hemorrhage SNOMED Code(s): 59811130 Code(s): O72.1 - OTHER IMMEDIATE HEMORRHAGE Status: Acute Priority: High Current Visit: Yes Qualifiers: hemorrhage type: other immediate Qualified Code(s): O72.1 - Other immediate hemorrhage - Problem List Review Problem List Initiated/Reviewed/Updated: Yes - Plan Plan:: Plan to continue inpatient course of care S/P primary LTCS. Hgb completed, down to 9.0 from baseline of 11.8. Patient warm, mildly diaphoretic, and mildly tachycardic in the 110s, pale gums. Continue to hemodynamically monitor. Continue to feed , eat, hydrate, and ambulate 3-5 times per day. CHAS dressing intact, scant old blood noted. Patient does not have any questions or concerns at this time. Dr. Petersen notified and agreeable; at bedside, orders pending. Plan to possibly D/C home today.
[2020-12-11] MEDS: Docusate Sodium 100 MG Cap PO SCH ×2 (00:40→09:22)
[2020-12-11] MEDS ORDERED: Ibuprofen 800 MG Tab PO PRN (02:00)
[2020-12-11] MEDS: Acetaminophen/oxyCODONE 325-5 MG Tab PO PRN ×3 (03:38→14:09)
--- NOTE | 2020-12-11 07:23 | PCM.PNPP ---
- General Info Date of Service: 12/11/20 Admission Dx/Problem (Free Text): Admission Diagnosis/Problem Admission Diagnosis/Problem 12/07/20 21:08 Prachi is a 30 yo current S/P primary LTCS at 41+2 weeks gestation (HERB(LMP) 11/30/2020) due to failed post-dates IOL. O pos, RI, GBS neg. Primary LTCS complicated by EBL 1,100. VSS, afebrile. Mild tachycardia noted in the 110s. Patient denies any problems or concerns at this time except "I am so hot. It's hot in here". 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 Patient ambulating, voiding, eating, and hydrating without issue. Patient breast, bottle, and pumping without issue. Moderate vaginal bleeding without clots. Patient expresses desire to be discharged home, or at least for baby to be allowed downstairs to see her mother prior to her departure planned for tomorrow. Functional Status: Reports: Pain Controlled, Tolerating Diet, Ambulating, Urinating - Review of Systems General: Reports: No Symptoms HEENT: Reports: No Symptoms Pulmonary: Reports: No Symptoms Cardiovascular: Reports: No Symptoms Gastrointestinal: Reports: No Symptoms Genitourinary: Reports: No Symptoms Musculoskeletal: Reports: No Symptoms Skin: Reports: No Symptoms Neurological: Reports: No Symptoms Psychiatric: Reports: No Symptoms - General Info Date of Service: 12/11/20 - Patient Data Vital Signs - Most Recent: Last Vital Signs Temp 96.8 F L 12/11/20 05:25 Pulse 119 H 12/11/20 05:25 Resp 17 12/11/20 05:25 BP 133/71 12/11/20 05:25 Pulse Ox 95 12/11/20 05:25 Weight - Most Recent: 236 lb 8 oz I&O - Last 24 Hours: Intake & Output 12/10/20 12/11/20 12/11/20 22:59 06:59 14:59 Output Total 550 Balance -550 Lab Results - Last 24 Hours: Laboratory Results - last 24 hr 12/11/20 Range/Units 04:55 Hgb 7.1 L (12.0-16.0) g/dL Hct 21.8 L (36.0-46.0) % Med Orders - Current: Current Medications Bisacodyl (Bisacodyl 10 Mg Supp) 10 mg RECTAL ONETIME PRN PRN Reason: Constipation Butorphanol Tartrate (Butorphanol 1 Mg/Ml Sdv) 1 mg IVPUSH Q1H PRN PRN Reason: Pain Last Admin: 12/08/20 17:44 Dose: 1 mg Documented by: Carboprost Tromethamine (Carboprost Tromethamine 250 Mcg/1 Ml Amp) 250 mcg IM ASDIRECTED PRN PRN Reason: Post Hemorrhage Diphenhydramine HCl (Diphenhydramine 50 Mg/Ml Sdv) 25 mg IVPUSH Q6H PRN PRN Reason: Itching or Nausea Last Admin: 12/10/20 23:00 Dose: 25 mg Documented by: Docusate Sodium (Docusate Sodium 100 Mg Cap) 100 mg PO BID SIMBA Last Admin: 12/11/20 00:40 Dose: Not Given Documented by: Emollient Ointment (Lanolin 100% Cream 7 Gm Tube) 0 gm TOP ASDIRECTED PRN PRN Reason: Sore Nipples Last Admin: 12/10/20 23:17 Dose: 7 gm Documented by: Fentanyl (Fentanyl 100 Mcg/2 Ml Sdv) 50 mcg IVPUSH Q1H PRN PRN Reason: Pain (severe 7-10) Hydroxyzine Pamoate (Hydroxyzine Pamoate 25 Mg Cap) 50 mg PO BEDTIME PRN PRN Reason: Insomnia Last Admin: 12/07/20 22:18 Dose: 50 mg Documented by: Oxytocin/Sodium Chloride (Oxytocin 30 Unit/500 Ml-Ns) 30 unit in 500 mls @ 999 mls/hr IV TITRATE SIMBA Tranexamic Acid 1,000 mg/ (Sodium Chloride) 110 mls @ 660 mls/hr IV ONETIME PRN PRN Reason: Bleeding Oxytocin/Sodium Chloride (Oxytocin 30 Unit/500 Ml-Ns) 30 unit in 500 mls @ 2 mls/hr IV TITRATE SIMBA; Protocol Last Titration: 12/09/20 18:33 Dose: 0 munits/min, 0 mls/hr Documented by: Lactated Ringer's (Ringers, Lactated) 1,000 mls @ 150 mls/hr IV ASDIRECTED SIMBA Last Admin: 12/10/20 13:55 Dose: 150 mls/hr Documented by: Lactated Ringer's (Ringers, Lactated) 1,000 mls @ 125 mls/hr IV ASDIRECTED [facility] Tranexamic Acid 1,000 mg/ (Sodium Chloride) 110 mls @ 660 mls/hr IV ONETIME PRN PRN Reason: Bleeding Ibuprofen (Ibuprofen 800 Mg Tab) 800 mg PO Q8H PRN PRN Reason: mild pain or fever Last Admin: 12/11/20 04:27 Dose: 800 mg Documented by: Lidocaine HCl (Lidocaine 1% 50 Ml Mdv) 50 ml INJECT ONETIME PRN PRN Reason: Laceration repair Methylergonovine Maleate (Methylergonovine 0.2 Mg/1 Ml Amp) 0.2 mg IM ASDIRECTED PRN PRN Reason: Post Hemorrhage Methylergonovine Maleate (Methylergonovine 0.2 Mg/1 Ml Amp) 0.2 mg IM ONETIME PRN PRN Reason: Excessive Vaginal Bleeding Misoprostol (Misoprostol 200 Mcg Tab) 200 mcg PO ONETIME PRN PRN Reason: Post Hemorrhage Misoprostol (Misoprostol 25 Mcg (1/4 Of 100 Mcg) Tab) 25 mcg VAG ONETIME PRN PRN Reason: Cervical Ripening Last Admin: 12/07/20 22:17 Dose: 25 mcg Documented by: Misoprostol (Misoprostol 25 Mcg (1/4 Of 100 Mcg) Tab) 25 mcg PO ONETIME PRN PRN Reason: Cervical Ripening Last Admin: 12/07/20 22:17 Dose: 25 mcg Documented by: Misoprostol (Misoprostol 25 Mcg (1/4 Of 100 Mcg) Tab) 25 mcg PO Q4H PRN PRN Reason: Cervical Ripening Last Admin: 12/09/20 02:49 Dose: 25 mcg Documented by: Misoprostol (Misoprostol 25 Mcg (1/4 Of 100 Mcg) Tab) 25 mcg VAG Q4H PRN PRN Reason: Cervical Ripening Last Admin: 12/08/20 11:00 Dose: 25 mcg Documented by: Misoprostol (Misoprostol 200 Mcg Tab) 1,000 mcg RECTAL ONETIME PRN PRN Reason: excessive bleeding Nalbuphine HCl (Nalbuphine 10 Mg/1 Ml Vial) 5 mg IVPUSH ASDIRECTED PRN PRN Reason: Itching Ondansetron HCl (Ondansetron 4 Mg/2 Ml Sdv) 4 mg IVPUSH Q6H PRN PRN Reason: Nausea Ondansetron HCl (Ondansetron 4 Mg/2 Ml Sdv) 4 mg IVPUSH Q4H PRN PRN Reason: Nausea/Vomiting Oxycodone/Acetaminophen (Acetaminophen/Oxycodone 325-5 Mg Tab) 2 tab PO Q6H PRN PRN Reason: Pain (moderate 4-6) Oxycodone/Acetaminophen (Acetaminophen/Oxycodone 325-5 Mg Tab) 1 tab PO Q4H PRN PRN Reason: Pain (moderate 4-6) Last Admin: 12/10/20 16:52 Dose: 1 tab Documented by: Oxycodone/Acetaminophen (Acetaminophen/Oxycodone 325-5 Mg Tab) 2 tab PO Q4H PRN PRN Reason: Pain (moderate 4-6) Last Admin: 12/11/20 03:38 Dose: 2 tab Documented by: Oxytocin (Oxytocin 10 Units/1 Ml Sdv) 10 unit IM ASDIRECTED PRN PRN Reason: Excessive Vaginal Bleeding Promethazine HCl (Promethazine 25 Mg Tab) 25 mg PO Q4H PRN PRN Reason: Nausea/Vomiting Last Admin: 12/08/20 22:38 Dose: 25 mg Documented by: Sodium Chloride (Sodium Chloride 0.9% 10 Ml Syringe) 10 ml FLUSH ASDIRECTED PRN PRN Reason: Keep Vein Open Last Admin: 12/08/20 15:56 Dose: 10 ml Documented by: Sodium Chloride (Sodium Chloride 0.9% 2.5 Ml Syringe) 2.5 ml FLUSH ASDIRECTED PRN PRN Reason: Keep Vein Open Sodium Chloride (Sodium Chloride 0.9% 10 Ml Sdv) 10 ml IV ASDIRECTED PRN PRN Reason: IV Use Sterile Water (Water For Irrigation,Sterile 1,000 Ml Container) 1,000 ml IRR ASDIRECTED PRN PRN Reason: delivery Terbutaline Sulfate (Terbutaline 1 Mg/Ml Sdv) 0.25 mg SUBCUT ASDIRECTED PRN PRN Reason: Tacysystole Discontinued Medications Acetaminophen (Acetaminophen 500 Mg Tab) 1,000 mg PO ONETIME ONE Stop: 12/08/20 15:41 Last Admin: 12/08/20 15:39 Dose: 1,000 mg Documented by: Bupivacaine HCl (Bupivacaine 0.5% 10 Ml Sdv) Confirm Administered Dose 10 ml .ROUTE .ST-MED ONE Stop: 12/09/20 17:52 Bupivacaine HCl (Bupivacaine 0.5% 30 Ml Sdv) Confirm Administered Dose 30 ml .ROUTE .ST-MED ONE Stop: 12/09/20 18:14 Cefazolin Sodium (Cefazolin 1 Gm Vial) Confirm Administered Dose 2 gm .ROUTE .ST-MED ONE Stop: 12/09/20 18:47 Diphenhydramine HCl (Diphenhydramine 50 Mg/Ml Sdv) 25 mg IVPUSH Q4H PRN PRN Reason: Itching Stop: 12/10/20 19:35 Last Admin: 12/10/20 05:00 Dose: 25 mg Documented by: Fentanyl (Fentanyl 100 Mcg/2 Ml Sdv) Confirm Administered Dose 100 mcg .ROUTE .ST-MED ONE Stop: 12/09/20 08:26 Fentanyl (Fentanyl 100 Mcg/2 Ml Sdv) Confirm Administered Dose 100 mcg .ROUTE .[facility]-MED ONE Stop: 12/09/20 13:32 Fentanyl (Fentanyl 100 Mcg/2 Ml Sdv) Confirm Administered Dose 100 mcg .ROUTE .ST-MED ONE Stop: 12/09/20 16:50 Fentanyl (Fentanyl 100 Mcg/2 Ml Sdv) Confirm Administered Dose 100 mcg .ROUTE .[facility]-MED ONE Stop: 12/09/20 18:40 Ropivacaine (Naropin 0.2%) Confirm Administered Dose 100 mls @ as directed .ROUTE .ST-MED ONE Stop: 12/09/20 08:26 Ropivacaine (Naropin 0.2%) Confirm Administered Dose 100 mls @ as directed .ROUTE .ST-MED ONE Stop: 12/09/20 16:50 Sodium Chloride (Normal Saline) Confirm Administered Dose 20 mls @ as directed .ROUTE .ST-MED ONE Stop: 12/09/20 18:47 Ketorolac Tromethamine (Ketorolac 30 Mg/Ml Sdv) Confirm Administered Dose 30 mg .ROUTE .STK-MED ONE Stop: 12/09/20 18:34 Ketorolac Tromethamine (Ketorolac 30 Mg/Ml Sdv) 30 mg IVPUSH Q6H SIMBA Stop: 12/10/20 20:01 Last Admin: 12/10/20 20:32 Dose: 30 mg Documented by: Lidocaine/Epinephrine (Lidocaine 2% With Epinephrine 1:200,000 20 Ml Sdv) Confirm Administered Dose 20 ml .ROUTE .STK-MED ONE Stop: 12/09/20 13:32 Lidocaine/Epinephrine (Lidocaine 2% With Epinephrine 1:200,000 20 Ml Sdv) Confirm Administered Dose 20 ml .ROUTE .STK-MED ONE Stop: 12/09/20 18:40 Midazolam HCl (Midazolam 1 Mg/Ml 2 Ml Sdv) Confirm Administered Dose 2 mg .ROUTE .STK-MED ONE Stop: 12/09/20 19:35 Misoprostol (Misoprostol 25 Mcg (1/4 Of 100 Mcg) Tab) 25 mcg VAG Q4H PRN PRN Reason: Cervical Ripening Morphine Sulfate (Morphine Pf 10 Mg/10 Ml Sdv) Confirm Administered Dose 10 mg .ROUTE .STK-MED ONE Stop: 12/09/20 19:12 Nalbuphine HCl (Nalbuphine 10 Mg/1 Ml Vial) 10 mg IVPUSH Q1H PRN PRN Reason: Pain (severe 7-10) Last Admin: 12/09/20 05:54 Dose: 10 mg Documented by: Naloxone HCl (Naloxone 0.4 Mg/Ml Syringe) 0.1 mg IVPUSH ONETIME PRN PRN Reason: Respiratory Depression Stop: 12/10/20 19:35 Ondansetron HCl (Ondansetron 4 Mg/2 Ml Sdv) Confirm Administered Dose 4 mg .ROUTE .STK-MED ONE Stop: 12/09/20 18:34 Oxytocin (Oxytocin 10 Units/1 Ml Sdv) Confirm Administered Dose 20 unit .ROUTE .STK-MED ONE Stop: 12/09/20 18:34 Phenylephrine HCl (Phenylephrine 1% 10 Mg/Ml Sdv) Confirm Administered Dose 10 mg .ROUTE .STK-MED ONE Stop: 12/09/20 18:34 - Interaction Disposition, : [place] to Nursery Interaction: Not Interacting Infant Feeding: Attempted ; Nursed Fair/Poor, Bottle Fed Infant, Encouraged to Breastfeed Support Person: Significant Other - Recovery Exam Fundal Tone: Firm Fundal Level: 1 Fingerbreadths Below Umbilicus Fundal Placement: Midline Lochia Amount: Moderate Lochia Color: Rubra/Red Perineum Description: Intact, Minimal Bruising/Swelling Episiotomy/Laceration: None Bladder Status: Voiding Urinary Elimination: Voided - Exam General: Alert, Oriented, Cooperative, No Acute Distress HEENT: Pupils Equal, Pupils Reactive, Mucous Membr. Moist/[place] Neck: Supple Lungs: Clear to Auscultation, Normal Respiratory Effort Cardiovascular: Regular Rate, Regular Rhythm GI/Abdominal Exam: Normal Bowel Sounds, Soft, Non-Tender, No Organomegaly, No Distention Extremities: Normal Inspection, Normal Range of Motion, Non-Tender, No Pedal Edema, Normal Capillary Refill Skin: Warm, Dry, Intact Wound/Incisions: Dressing Dry and Intact (Scant to small old blood noted.) Neurological: No New Focal Deficit Psy/Mental Status: Alert, Normal Affect, Normal Mood - Problem List & Annotations (1) Status post primary low transverse section SNOMED Code(s): 543422529, 68999905, 558019881, 296896126, [id number] Code(s): Z98.891 - HISTORY OF UTERINE SCAR FROM PREVIOUS SURGERY Status: Acute Priority: High Current Visit: Yes (2) hemorrhage SNOMED Code(s): 18342945 Code(s): O72.1 - OTHER IMMEDIATE HEMORRHAGE Status: Acute Priority: High Current Visit: Yes Qualifiers: hemorrhage type: other immediate Qualified Code(s): O72.1 - Other immediate hemorrhage - Problem List Review Problem List Initiated/Reviewed/Updated: Yes - My Orders Last 24 Hours: My Active Orders 12/11/20 07:18 Transfuse Red Blood Cells [COMM] Routine 12/11/20 07:19 Verify Patient Consent Obtain [RC] ASDIRECTED RED BLOOD CELLS LP [BBK] Routine - Plan Plan:: Plan to continue inpatient course of care S/P primary LTCS. Hgb completed, down to 7.1 from baseline of 11.8. Patient warm, mildly diaphoretic, and mildly tachycardic in the 110s, pale gums. Plan to administer 1 unit PRBCs this am, reassess compensation status, continue to hemodynamically monitor. Continue to feed infant, eat, hydrate, and ambulate 3-5 times per day. CHAS dressing intact, scant old blood noted. Patient does not have any questions or concerns at this time. Dr. Petersen notified and agreeable; at bedside, orders pending. Plan to possibly D/C home today.
[2020-12-11] MEDS ORDERED: Furosemide 20 MG/2 ML VIAL IVPUSH SCH (09:00)
--- NOTE | 2020-12-11 10:03 | OR ---
SURGEON: Kailash Petersen MD DATE OF PROCEDURE: 12/09/2020 PREOPERATIVE DIAGNOSES: Intrauterine , 41+ weeks, and failed induction. POSTOPERATIVE DIAGNOSES: Intrauterine , 41+ weeks, and failed induction. OPERATION PERFORMED: Primary low-transverse section. PRIMARY SURGEON: Kailash Petersen MD INDUSTRIAL MAINTENANCE INSTRUCTOR: Fanny Villagomez CNM ANESTHESIA: Epidural. ANESTHESIOLOGISTS: Grant Brennan and Dr. Deleon. ESTIMATED BLOOD LOSS: 1100 mL. COMPLICATION: A laceration of the left uterine artery due to extension of the uterine incision. INDICATIONS FOR SURGERY: This patient is 30. She is 41 weeks. She is followed in our clinic primarily by our Nurse [facility]. The patient is admitted for induction. She had 2 days' induction. She did not progress beyond 4 cm in spite of adequate stimulation and adequate induction. A decision was made to do a primary low- transverse section for failed induction, possible due to CPD. FINDINGS: Female fetus, is weighing 9 pounds 4 ounces, scores reported to be 8 and 9. PROCEDURE IN DETAIL: The patient was brought to the OR and properly identified, and after an adequate level of epidural anesthesia with a Kaur catheter in the bladder, the patient was prepped and draped in sterile fashion as usual. A low-transverse Pfannenstiel skin incision was done. Rekha's fascia and rectus fascia were opened in the direction of the incision. The 2 recti muscles were . The peritoneal cavity was entered. A bladder flap was raised in the usual manner. A low-transverse uterine incision was done and extended manually with the hand, and the fetus was in the vertex position, delivered, and cried immediately. scores were reported to be 8 and 9 later on and the weight 9 pounds 4 ounces. The placenta delivered spontaneous, complete, and intact. It was noted there was an extension of the uterine incision in the left side of the incision, and there was bleeding from the uterine vessel, and using 0 Vicryl, a [id number] suture was applied. The bleeding stopped, and the repair of the lower uterine segment was done with 2-0 Vicryl continuous interlocking in 2 layers. Reperitonealization was done with 3-0 Vicryl continuous and then the peritoneal cavity evacuated completely from all blood and blood clot and closed with 3-0 Vicryl continuous. The rectus fascia was closed with #1 PDS double strand continuous and the Rekha's fascia with 3-0 Vicryl continuous and the skin closed with 3-0 Vicryl in a subcuticular fashion. Instrument and sponge count was correct. The patient tolerated the procedure well and went to the recovery room in stable general condition. KAI / DAVID /[id number]
[2020-12-11] MEDS ORDERED: Furosemide 20 MG/2 ML VIAL IVPUSH ONE (11:15)
--- NOTE | 2020-12-11 18:04 | PCM.DCSUM1 ---
Discharge Summary - Hospital Course Free Text/Narrative:: Discharge home with baby. Follow up in the clinic for one weeks postop incision check and dressing removal. Follow up in the clinic in six weeks for routine visit; sooner, if needed. Diagnosis: Stroke: No - Discharge Data Discharge Date: 12/11/20 Discharge Disposition: Home, Self-Care 01 Condition: Good - Discharge Diagnosis/Problem(s) (1) Supervision of normal IUP (intrauterine ) in primigravida SNOMED Code(s): 51415509, 265675931, 861401218, 894431988 ICD Code: Z34.00 - ENCNTR FOR SUPRVSN OF NORMAL FIRST , UNSP TRIMESTER Status: Acute Priority: High Current Visit: Yes Qualifiers: Trimester: third trimester Qualified Code(s): Z34.03 - Encounter for supervision of normal first , third trimester (2) (spontaneous vaginal delivery) SNOMED Code(s): 373783034 ICD Code: O80 - ENCOUNTER FOR FULL-TERM UNCOMPLICATED DELIVERY Status: Acute Priority: High Current Visit: Yes - Patient Summary/Data Operative Procedure(s) Performed: Primary C/section. - Patient Instructions Diet: Drink 8-10+ Glasses/Day Activity: No Strenuous Activities, Rest and Relax Today Driving: Do Not Drive Showering/Bathing: May Shower Wound/Incision Care: Keep Operative Site/Wound Site Clean and Dry, Do NOT Change Dressing Notify Provider of: Fever, Increased Pain, Swelling and Redness, Nausea and/or Vomiting - Discharge Plan *PRESCRIPTION DRUG MONITORING PROGRAM REVIEWED*: Not Applicable *COPY OF PRESCRIPTION DRUG MONITORING REPORT IN PATIENT KATHARINA: Not Applicable Prescriptions/Med Rec: Ibuprofen [Motrin] 800 mg PO Q8H PRN #90 tablet PRN Reason: mild pain or fever Acetaminophen/oxyCODONE [Percocet 325-5 MG] 1 - 2 tab PO Q6HR PRN #15 tablet PRN Reason: Pain (Moderate 4-6) Home Medications: Home Meds DULoxetine [Cymbalta] 30 mg PO DAILY 08/31/20 [History] Acetaminophen/oxyCODONE [Percocet 325-5 MG] 1 - 2 tab PO Q6HR PRN #15 tablet 12/11/20 [Rx] Ibuprofen [Motrin] 800 mg PO Q8H PRN #90 tablet 12/11/20 [Rx] Patient Handouts: Baby Blues, and Self-Care, Easy-to- Read, Care After Delivery Referrals: Kailash Petersen MD [Physician] - 12/18/20 1:30 pm (Your second follow up appointment is January 22, [address] at [address] Petersen.) - Discharge Summary/Plan Comment DC Time >30 min.: Yes - General Info Date of Service: 12/11/20 Functional Status: Reports: Pain Controlled, Tolerating Diet, Ambulating, Urinating - Review of Systems General: Reports: No Symptoms HEENT: Reports: No Symptoms Pulmonary: Reports: No Symptoms Cardiovascular: Reports: No Symptoms Gastrointestinal: Reports: No Symptoms Genitourinary: Reports: No Symptoms Musculoskeletal: Reports: No Symptoms Skin: Reports: No Symptoms Neurological: Reports: No Symptoms Psychiatric: Reports: No Symptoms - Patient Data Vitals - Most Recent: Last Vital Signs Temp 98.3 F 12/11/20 15:55 Pulse 114 H 12/11/20 15:55 Resp 17 12/11/20 15:55 BP 148/81 H 12/11/20 15:55 Pulse Ox 96 12/11/20 15:55 Weight - Most Recent: 236 lb 8 oz I&O - Last 24 hours: Intake & Output 12/11/20 12/11/20 12/11/20 06:59 14:59 22:59 Intake Total 283 350 Balance 283 350 Lab Results - Last 24 hrs: Laboratory Results - last 24 hr 12/07/20 12/11/20 12/11/20 Range/Units 21:16 04:55 07:43 Hgb 7.1 L (12.0-16.0) g/dL Hct 21.8 L (36.0-46.0) % RPR Non-Reac (Non-Reac) Blood Type O POSITIVE Antibody Screen NEGATIVE Crossmatch See Detail 12/11/20 Range/Units 17:00 Hgb 8.9 L (12.0-16.0) g/dL Hct 26.8 L (36.0-46.0) % RPR (Non-Reac) Blood Type Antibody Screen Crossmatch Med Orders - Current: Current Medications Bisacodyl (Bisacodyl 10 Mg Supp) 10 mg RECTAL ONETIME PRN PRN Reason: Constipation Butorphanol Tartrate (Butorphanol 1 Mg/Ml Sdv) 1 mg IVPUSH Q1H PRN PRN Reason: Pain Last Admin: 12/08/20 17:44 Dose: 1 mg Documented by: Carboprost Tromethamine (Carboprost Tromethamine 250 Mcg/1 Ml Amp) 250 mcg IM ASDIRECTED PRN PRN Reason: Post Hemorrhage Diphenhydramine HCl (Diphenhydramine 50 Mg/Ml Sdv) 25 mg IVPUSH Q6H PRN PRN Reason: Itching or Nausea Last Admin: 12/10/20 23:00 Dose: 25 mg Documented by: Docusate Sodium (Docusate Sodium 100 Mg Cap) 100 mg PO BID SIMBA Last Admin: 12/11/20 09:22 Dose: 100 mg Documented by: Emollient Ointment (Lanolin 100% Cream 7 Gm Tube) 0 gm TOP ASDIRECTED PRN PRN Reason: Sore Nipples Last Admin: 12/10/20 23:17 Dose: 7 gm Documented by: Fentanyl (Fentanyl 100 Mcg/2 Ml Sdv) 50 mcg IVPUSH Q1H PRN PRN Reason: Pain (severe 7-10) Hydroxyzine Pamoate (Hydroxyzine Pamoate 25 Mg Cap) 50 mg PO BEDTIME PRN PRN Reason: Insomnia Last Admin: 12/07/20 22:18 Dose: 50 mg Documented by: Oxytocin/Sodium Chloride (Oxytocin 30 Unit/500 Ml-Ns) 30 unit in 500 mls @ 999 mls/hr IV TITRATE SIMBA Tranexamic Acid 1,000 mg/ (Sodium Chloride) 110 mls @ 660 mls/hr IV ONETIME PRN PRN Reason: Bleeding Oxytocin/Sodium Chloride (Oxytocin 30 Unit/500 Ml-Ns) 30 unit in 500 mls @ 2 mls/hr IV TITRATE SIMBA; Protocol Last Titration: 12/09/20 18:33 Dose: 0 munits/min, 0 mls/hr Documented by: Lactated Ringer's (Ringers, Lactated) 1,000 mls @ 150 mls/hr IV ASDIRECTED SIMBA Last Admin: 12/10/20 13:55 Dose: 150 mls/hr Documented by: Lactated Ringer's (Ringers, Lactated) 1,000 mls @ 125 mls/hr IV ASDIRECTED SIMBA Tranexamic Acid 1,000 mg/ (Sodium Chloride) 110 mls @ 660 mls/hr IV ONETIME PRN PRN Reason: Bleeding Ibuprofen (Ibuprofen 800 Mg Tab) 800 mg PO Q8H PRN PRN Reason: mild pain or fever Last Admin: 12/11/20 04:27 Dose: 800 mg Documented by: Lidocaine HCl (Lidocaine 1% 50 Ml Mdv) 50 ml INJECT ONETIME PRN PRN Reason: Laceration repair Methylergonovine Maleate (Methylergonovine 0.2 Mg/1 Ml Amp) 0.2 mg IM ASDIRECTED PRN PRN Reason: Post Hemorrhage Methylergonovine Maleate (Methylergonovine 0.2 Mg/1 Ml Amp) 0.2 mg IM ONETIME PRN PRN Reason: Excessive Vaginal Bleeding Misoprostol (Misoprostol 200 Mcg Tab) 200 mcg PO ONETIME PRN PRN Reason: Post Hemorrhage Misoprostol (Misoprostol 25 Mcg (1/4 Of 100 Mcg) Tab) 25 mcg VAG ONETIME PRN PRN Reason: Cervical Ripening Last Admin: 12/07/20 22:17 Dose: 25 mcg Documented by: Misoprostol (Misoprostol 25 Mcg (1/4 Of 100 Mcg) Tab) 25 mcg PO ONETIME PRN PRN Reason: Cervical Ripening Last Admin: 12/07/20 22:17 Dose: 25 mcg Documented by: Misoprostol (Misoprostol 25 Mcg (1/4 Of 100 Mcg) Tab) 25 mcg PO Q4H PRN PRN Reason: Cervical Ripening Last Admin: 12/09/20 02:49 Dose: 25 mcg Documented by: Misoprostol (Misoprostol 25 Mcg (1/4 Of 100 Mcg) Tab) 25 mcg VAG Q4H PRN PRN Reason: Cervical Ripening Last Admin: 12/08/20 11:00 Dose: 25 mcg Documented by: Misoprostol (Misoprostol 200 Mcg Tab) 1,000 mcg RECTAL ONETIME PRN PRN Reason: excessive bleeding Nalbuphine HCl (Nalbuphine 10 Mg/1 Ml Vial) 5 mg IVPUSH ASDIRECTED PRN PRN Reason: Itching Ondansetron HCl (Ondansetron 4 Mg/2 Ml Sdv) 4 mg IVPUSH Q6H PRN PRN Reason: Nausea Ondansetron HCl (Ondansetron 4 Mg/2 Ml Sdv) 4 mg IVPUSH Q4H PRN PRN Reason: Nausea/Vomiting Oxycodone/Acetaminophen (Acetaminophen/Oxycodone 325-5 Mg Tab) 2 tab PO Q6H PRN PRN Reason: Pain (moderate 4-6) Oxycodone/Acetaminophen (Acetaminophen/Oxycodone 325-5 Mg Tab) 1 tab PO Q4H PRN PRN Reason: Pain (moderate 4-6) Last Admin: 12/10/20 16:52 Dose: 1 tab Documented by: Oxycodone/Acetaminophen (Acetaminophen/Oxycodone 325-5 Mg Tab) 2 tab PO Q4H PRN PRN Reason: Pain (moderate 4-6) Last Admin: 12/11/20 14:09 Dose: 2 tab Documented by: Oxytocin (Oxytocin 10 Units/1 Ml Sdv) 10 unit IM ASDIRECTED PRN PRN Reason: Excessive Vaginal Bleeding Promethazine HCl (Promethazine 25 Mg Tab) 25 mg PO Q4H PRN PRN Reason: Nausea/Vomiting Last Admin: 12/08/20 22:38 Dose: 25 mg Documented by: Sodium Chloride (Sodium Chloride 0.9% 10 Ml Syringe) 10 ml FLUSH ASDIRECTED PRN PRN Reason: Keep Vein Open Last Admin: 12/08/20 15:56 Dose: 10 ml Documented by: Sodium Chloride (Sodium Chloride 0.9% 2.5 Ml Syringe) 2.5 ml FLUSH ASDIRECTED PRN PRN Reason: Keep Vein Open Sodium Chloride (Sodium Chloride 0.9% 10 Ml Sdv) 10 ml IV ASDIRECTED PRN PRN Reason: IV Use Sterile Water (Water For Irrigation,Sterile 1,000 Ml Container) 1,000 ml IRR ASDIRECTED PRN PRN Reason: delivery Terbutaline Sulfate (Terbutaline 1 Mg/Ml Sdv) 0.25 mg SUBCUT ASDIRECTED PRN PRN Reason: Tacysystole Discontinued Medications Acetaminophen (Acetaminophen 500 Mg Tab) 1,000 mg PO ONETIME ONE Stop: 12/08/20 15:41 Last Admin: 12/08/20 15:39 Dose: 1,000 mg Documented by: Bupivacaine HCl (Bupivacaine 0.5% 10 Ml Sdv) Confirm Administered Dose 10 ml .ROUTE .STK-MED ONE Stop: 12/09/20 17:52 Bupivacaine HCl (Bupivacaine 0.5% 30 Ml Sdv) Confirm Administered Dose 30 ml .ROUTE .STK-MED ONE Stop: 12/09/20 18:14 Cefazolin Sodium (Cefazolin 1 Gm Vial) Confirm Administered Dose 2 gm .ROUTE .STK-MED ONE Stop: 12/09/20 18:47 Diphenhydramine HCl (Diphenhydramine 50 Mg/Ml Sdv) 25 mg IVPUSH Q4H PRN PRN Reason: Itching Stop: 12/10/20 19:35 Last Admin: 12/10/20 05:00 Dose: 25 mg Documented by: Fentanyl (Fentanyl 100 Mcg/2 Ml Sdv) Confirm Administered Dose 100 mcg .ROUTE .STK-MED ONE Stop: 12/09/20 08:26 Fentanyl (Fentanyl 100 Mcg/2 Ml Sdv) Confirm Administered Dose 100 mcg .ROUTE .STK-MED ONE Stop: 12/09/20 13:32 Fentanyl (Fentanyl 100 Mcg/2 Ml Sdv) Confirm Administered Dose 100 mcg .ROUTE .STK-MED ONE Stop: 12/09/20 16:50 Fentanyl (Fentanyl 100 Mcg/2 Ml Sdv) Confirm Administered Dose 100 mcg .ROUTE .STK-MED ONE Stop: 12/09/20 18:40 Furosemide (Furosemide 20 Mg/2 Ml Vial) 20 mg IVPUSH NOW ONE Stop: 12/11/20 11:16 Last Admin: 12/11/20 11:55 Dose: 20 mg Documented by: Ropivacaine (Naropin 0.2%) Confirm Administered Dose 100 mls @ as directed .ROUTE .STK-MED ONE Stop: 12/09/20 08:26 Ropivacaine (Naropin 0.2%) Confirm Administered Dose 100 mls @ as directed .ROUTE .STK-MED ONE Stop: 12/09/20 16:50 Sodium Chloride (Normal Saline) Confirm Administered Dose 20 mls @ as directed .ROUTE .STK-MED ONE Stop: 12/09/20 18:47 Ketorolac Tromethamine (Ketorolac 30 Mg/Ml Sdv) Confirm Administered Dose 30 mg .ROUTE .STK-MED ONE Stop: 12/09/20 18:34 Ketorolac Tromethamine (Ketorolac 30 Mg/Ml Sdv) 30 mg IVPUSH Q6H SIMBA Stop: 12/10/20 20:01 Last Admin: 12/10/20 20:32 Dose: 30 mg Documented by: Lidocaine/Epinephrine (Lidocaine 2% With Epinephrine 1:200,000 20 Ml Sdv) Confirm Administered Dose 20 ml .ROUTE .STK-MED ONE Stop: 12/09/20 13:32 Lidocaine/Epinephrine (Lidocaine 2% With Epinephrine 1:200,000 20 Ml Sdv) Co nfirm Administered Dose 20 ml .ROUTE .STK-MED ONE Stop: 12/09/20 18:40 Midazolam HCl (Midazolam 1 Mg/Ml 2 Ml Sdv) Confirm Administered Dose 2 mg .ROUTE .STK-MED ONE Stop: 12/09/20 19:35 Misoprostol (Misoprostol 25 Mcg (1/4 Of 100 Mcg) Tab) 25 mcg VAG Q4H PRN PRN Reason: Cervical Ripening Morphine Sulfate (Morphine Pf 10 Mg/10 Ml Sdv) Confirm Administered Dose 10 mg .ROUTE .STK-MED ONE Stop: 12/09/20 19:12 Nalbuphine HCl (Nalbuphine 10 Mg/1 Ml Vial) 10 mg IVPUSH Q1H PRN PRN Reason: Pain (severe 7-10) Last Admin: 12/09/20 05:54 Dose: 10 mg Documented by: Naloxone HCl (Naloxone 0.4 Mg/Ml Syringe) 0.1 mg IVPUSH ONETIME PRN PRN Reason: Respiratory Depression Stop: 12/10/20 19:35 Ondansetron HCl (Ondansetron 4 Mg/2 Ml Sdv) Confirm Administered Dose 4 mg .ROUTE .STK-MED ONE Stop: 12/09/20 18:34 Oxytocin (Oxytocin 10 Units/1 Ml Sdv) Confirm Administered Dose 20 unit .ROUTE .STK-MED ONE Stop: 12/09/20 18:34 Phenylephrine HCl (Phenylephrine 1% 10 Mg/Ml Sdv) Confirm Administered Dose 10 mg .ROUTE .STK-MED ONE Stop: 12/09/20 18:34 - Exam General: Reports: Alert, Oriented, Cooperative, No Acute Distress Lungs: Reports: Normal Respiratory Effort Cardiovascular: Reports: Regular Rhythm, Tachycardia (improved since this AM and after blood transfusion) GI/Abdominal Exam: Soft, Non-Tender (Female) Exam: Deferred Rectal (Female) Exam: Deferred Back Exam: Reports: Normal Inspection, Full Range of Motion Extremities: Normal Inspection, Normal Range of Motion, Non-Tender, Normal Capillary Refill Skin: Reports: Warm, Dry, Intact Wound/Incisions: Reports: Dressing Dry and Intact Neurological: Reports: No New Focal Deficit, Normal Gait, Normal Speech, Normal Tone Psy/Mental Status: Reports: Alert, Normal Affect, Normal Mood
== END 2020-12-11 18:57 | disposition home or self-care (01) | DRG 540 ==
LOC: MW.OB 20:52 → OBSVTOIN 12-09 19:28 → MW.OB 12-10 00:11
PROVIDERS: ADMIT Obstetrics & Gynecology; ATTEND Obstetrics & Gynecology
PROC: 10D00Z1 Extraction of Products of Conception, Low, Open Approach (ICD-10-PCS; principal; 2020-12-09)
PROC: 3E0P7VZ Introduction of Hormone into Female Reproductive, Via Natural or Artificial Opening (ICD-10-PCS; 2020-12-09)
PROC: 30233N1 Transfusion of Nonautologous Red Blood Cells into Peripheral Vein, Percutaneous Approach (ICD-10-PCS; 2020-12-09)
PROC: 4A1HXCZ Monitoring of Products of Conception, Cardiac Rate, External Approach (ICD-10-PCS; 2020-12-09)
PROC: 3E0R3BZ Introduction of Anesthetic Agent into Spinal Canal, Percutaneous Approach (ICD-10-PCS; 2020-12-09)
PROC: 00HU33Z Insertion of Infusion Device into Spinal Canal, Percutaneous Approach (ICD-10-PCS; 2020-12-09)
DX: O48.0 Post-term pregnancy (principal); Z3A.41 41 weeks gestation of pregnancy; Z37.0 Single live birth; O99.824 Streptococcus B carrier state complicating childbirth; O99.214 Obesity complicating childbirth; E66.9 Obesity, unspecified; O72.1 Other immediate postpartum hemorrhage; Z20.822 Contact with and (suspected) exposure to COVID-19
CPT/HCPCS: 01967; 01968; 36415; 36430; 51702; 59200; 85014; 85018; 85027; 86592; 86850; 86900; 86901; 86920; 86921; 86922; A9270-GY; J0595; J0690; J1200; J1885; J1940; J2250; J2270; J2300; J2370; J2405; J2590; J2795; J3010; J3490; J7120; P9016; U0002

== ENCOUNTER 2022-10-09 20:15 | Emergency (ER) | payer BC ==
[2022-10-09] MEDS ORDERED: Sodium Chloride 0.9% 1,000 ML IV ONE (21:11)
[2022-10-09] MEDS ORDERED: Ondansetron 4 MG/2 ML SDV IVPUSH ONE (21:11)
[2022-10-09] MEDS ORDERED: Morphine 4 MG/ML Syringe IVPUSH ONE (21:11)
[2022-10-09] MEDS ORDERED: cefTRIAXone 1 GM in Sodium Chloride 0.9% 50 ML IV ONE (21:57)
[2022-10-09] MEDS ORDERED: traMADol 50 MG Tab PO ONE (22:03)
[2022-10-09 22:09] LABS: CARBON DIOXIDE,CO2 26.1 mmol/L (21.0-32.0); POTASSIUM,K 3.6 mmol/L (3.5-5.1)
== END 2022-10-09 23:00 | disposition home or self-care (01) ==
LOC: MW.ED 20:15
DX: N39.0 Urinary tract infection, site not specified (principal)
CPT/HCPCS: 36415; 80053; 81001; 81025; 85025; 96365; 96375; 99283; A9270; J0696; J2270; J2405; J7030; J7050; 99284

== ENCOUNTER 2022-10-13 13:28 | Emergency (ER) | payer BC ==
[2022-10-13] MEDS ORDERED: Sodium Chloride 0.9% 1,000 ML IV STA ×2 (13:58→14:12)
[2022-10-13] MEDS ORDERED: Ondansetron 4 MG/2 ML SDV IVPUSH STA (14:12)
[2022-10-13] MEDS ORDERED: Morphine 4 MG/ML Syringe IVPUSH STA (14:12)
[2022-10-13 14:37] LABS: POTASSIUM,K 3.8 mmol/L (3.5-5.1)
== END 2022-10-13 16:40 | disposition home or self-care (01) ==
LOC: MW.ED 13:28
DX: K76.0 Fatty (change of) liver, not elsewhere classified (principal); R16.2 Hepatomegaly with splenomegaly, not elsewhere classified; R74.01 Elevation of levels of liver transaminase levels; K59.00 Constipation, unspecified; Z79.899 Other long term (current) drug therapy
CPT/HCPCS: 36415; 74176; 80053; 81001; 81025; 85025; 96361; 96374; 96375; 99284; J2270; J2405; J7030

== ENCOUNTER 2023-04-30 18:33 | Emergency (ER) | payer MEDICAID ==
[2023-04-30] MEDS ORDERED: Ibuprofen 600 MG Tab PO ONE (19:18)
[2023-04-30] MEDS ORDERED: Acetaminophen/oxyCODONE 325-5 MG Tab PO ONE (19:18)
== END 2023-04-30 20:45 | disposition home or self-care (01) ==
LOC: MW.ED 18:33
DX: S00.12XA Contusion of left eyelid and periocular area, initial encounter (principal); W22.8XXA Striking against or struck by other objects, initial encounter
CPT/HCPCS: 70486; 81025; 99284; A9270; 99282